=== PATIENT | male | born 1960 | race Caucasian/White ===

== ENCOUNTER 2017-12-22 11:46 | Inpatient (IN) | payer OTHER ==
[~2017-12-22] VITALS: Ht 167.6 cm; Wt 90.6 kg
[~2017-12-22 11:46] MED LIST: ALPR-411 PO; AMLO5TAB3 PO; ASPI-435 PO; ATEN50TA8 PO; BUSP15TA70 PO; CHOL1CAP63 PO; CLR10 PO; FLM4 PO; FLUT0.15; GLC/500 PO; MELATAB2 PO; NXM/40 PO; SUCR1TAB PO; [UNRECOGNIZED DRUG - CODE]
[2017-12-22] MEDS ORDERED: KETOROLAC TROMETHAMINE 30 MG/ML VIAL IV STA (12:04)
[2017-12-22] MEDS ORDERED: SODIUM CHLORIDE 0.9% 1000ML 1,000 ML IV STA (12:04)
[2017-12-22] MEDS ORDERED: ONDANSETRON INJ 2 MG/ML 2 ML VIAL IV STA (12:04)
--- NOTE | 2017-12-22 12:13 | EMERGENCY ROOM VISIT NOTE ---
History Report prepared by Darell: Julio Mason Under the Supervision of: Dr. Amarjit Downs M.D. First contact with patient: 11:58 Chief Complaint: KIDNEY STONE Stated Complaint: KIDNEY STONE,VOMITING History of Present Illness The patient is a 57 year old male who presents to the Emergency Room with complaints of worsening pain in the left flank that began last week. The patient 's at bedside states that the patient had laboratory work performed in the outpatient setting as pre-operative testing. On this laboratory work they found infection and placed him on antibiotics. Follow-up renal ultra sound found an obstructing stone in the left kidney. He is scheduled to have a CT next Sunday. The patient is now also complaining of nausea and vomiting. Source of History: patient Onset: Last week Position: back (left flank) Quality: other (Known kindey stone) Timing: worsening Associated Symptoms: + nausea, + vomiting Review of Systems See HPI for pertinent positives and negatives. A total of ten systems were reviewed and were otherwise negative. Past Medical & Surgical Medical Problems: (1) Abdominal pain (2) Abnormal weight loss (3) Acute low back pain (4) Anxiety (5) Benign hypertension (6) BPH (benign prostatic hyperplasia) (7) Calculus of kidney and ureter (8) Chest pain (9) Diarrhea (10) Gastroesophageal reflux disease (11) Hydronephrosis, left (12) Hyperlipidemia (13) Kidney stones (14) Nausea Surgical Problems: (1) History of lithotripsy (2) History ureteral calculus removal Social History Smoking Status: Never Smoker Marital Status: Occupation Status: employed Current/Historical Medications Scheduled Amlodipine (Norvasc), 5 MG PO HS Aspirin (Aspirin 81), 81 MG PO QAM Atenolol (Tenormin), 50 MG PO BID Buspirone Hcl (Buspar), 15 MG PO BID Choline Fenofibrate (Fenofibric Acid Dr), 135 MG PO QAM Ciprofloxacin (Ciprofloxacin HCl), 1 TAB PO BID Esomeprazole Magnesium (Nexium), 40 MG PO DAILY Fluticasone Propionate (Nasal) (Flonase Allergy Relief), 2 SPRAYS NA DAILY Loratadine (Claritin), 10 MG PO QAM Melatonin (Melatonin Maximum Strengt), 5 MG PO HS Metformin Hcl (Glucophage), 500 MG PO BID Sucralfate (Sucralfate), 1 GM PO QID Tamsulosin HCl (Tamsulosin HCl), 0.4 MG PO QAM Scheduled PRN Alprazolam (Xanax), 0.5 MG PO TID PRN for Anxiety Oxycodone/Acetaminophen 5MG/325MG (Percocet 5MG/325MG), 1 TABLET PO Q4H PRN for Pain Saline (Ra Saline Nasal [place]), 1 SPRAY NA DAILY PRN for Nasal Congestion Allergies Coded Allergies: Amoxicillin (Unverified Adverse Reaction, Mild, Diarrhea, 12/22/17) Diarrhea, per pt Physical Exam Vital Signs Date Time Temp Pulse Resp B/P (MAP) Pulse Ox O2 Delivery O2 Flow Rate FiO2 12/22/17 13:20 96 Room Air 12/22/17 13:15 81 18 101/64 96 Room Air 12/22/17 11:48 37.1 96 18 110/74 96 Room Air Physical Exam Physical Exam GENERAL: He is oriented to person, place, and time. He appears well-developed and well-nourished. He does not appear distressed. HENT: Exam performed. Head: Normocephalic and atraumatic. Right Ear: External ear normal. No mastoid tenderness. Left Ear: External ear normal. No mastoid tenderness. Mouth/Throat: The oropharynx is clear and moist. No trismus in the jaw. No dental abscesses or uvula swelling. No oropharyngeal exudate or tonsillar abscesses. EYES: Conjunctivae and EOM are normal. Pupils are equal, round, and reactive to light. Right eye exhibits no discharge. Left eye exhibits no discharge. No scleral icterus. NECK: Normal range of motion. Neck supple. No JVD present. No spinous process tenderness present. No carotid bruit present. No rigidity. No tracheal deviation and normal range of motion present. No Brudzinski's sign and no Kernig 's sign noted. CV: Normal rate, regular rhythm, normal heart sounds and intact distal pulses. There is no peripheral edema. Palpable radial pulses bue. PULM/CHEST: Effort normal and breath sounds normal. No respiratory distress. No stridor. He has no wheezes. He has no rales. Chest Wall: He exhibits no tenderness. ABD: The abdomen is soft. Bowel sounds are normal. He has no distension. No mass is present. There is no tenderness. There is no rebound, no guarding, no Crespo's sign and no tenderness at McBurney's point. Rovsig negative. MUSC/SKEL: Normal range of motion. There is no peripheral edema, tenderness or deformity. LYMPH: No cervical adenopathy. NEURO: He is alert and oriented to person, place, and time. He has normal strength. No cranial nerve deficit or sensory deficit. Coordination and gait normal. GCS eye subscore is 4. GCS verbal subscore is 5. GCS motor subscore is 6. Cerebellar tests wnl. SKIN: Skin is warm and dry. He is not diaphoretic. PSYCH: He has a normal mood and affect. Behavior is normal. Judgment and thought content normal. Medical Decision & Procedures ER Provider Diagnostic Interpretation: Radiology results as stated below per my review and radiologist interpretation: ] ABD/PELVIS WITHOUT FOR STONE CLINICAL HISTORY: 57 years-old Male presenting with ro kidney stone. TECHNIQUE: Multidetector CT of the abdomen and pelvis was performed without the use of intravenous contrast. IV contrast: None. A dose lowering technique was used consistent with the principles of ALARA (as low as reasonably achievable). COMPARISON: None. CT DOSE (mGy.cm): The estimated cumulative dose is 1272.31 mGy.cm. FINDINGS: Rehab Tech topogram: Unavailable. Lung bases: Minimal basilar opacities, likely atelectasis. Mild bronchial wall thickening suggested. Normal heart size. No pericardial or pleural effusion. Liver: Normal morphology. Density consistent with hepatic steatosis. Biliary: No gross biliary ductal dilatation allowing for noncontrast technique. Normal gallbladder. Pancreas: Mild parenchymal atrophy. Spleen: Normal noncontrast appearance. Adrenal glands: Normal noncontrast appearance. Kidneys and ureters: 6 mm nonobstructing calculus in the interpolar region of the right kidney. Small hyperdensity at the lower pole the right kidney indeterminate but possibly hemorrhagic or proteinaceous cyst (series 3 image 214). Multiple nonobstructing left renal calculi, the dominant calculus at the lower pole measuring 11 mm. Mild left pelvocaliectasis with an obstructing or partially obstructing 9 mm calculus at the left renal pelvis. Bilateral nonspecific mild perinephric fat stranding. Ureters normal bilaterally. Bladder: Incompletely evaluated secondary to underdistention. Pelvic organs: Prostate and seminal vesicles normal. Calcification in the prostate may relate to atrophic change. Bowel: Few scattered colonic diverticula in the descending and sigmoid colon. The appendix is normal. No bowel obstruction. Peritoneal cavity: No free fluid or intraperitoneal gas. Trace left retroperitoneal fluid. Lymph nodes: No gross lymphadenopathy allowing for noncontrast technique. Vasculature: Atherosclerosis of the normal caliber abdominal aorta. Abdominal wall: Normal. Musculoskeletal: Degenerative changes of the spine. IMPRESSION: 1. Bilateral nephrolithiasis with an obstructing or partially obstructing 9 mm calculus in the left renal pelvis and mild left hydronephrosis. 2. Hepatic steatosis. 3. Mild bronchial wall thickening at the lung bases, nonspecific. This may indicate reactive airways disease or bronchiolitis. Electronically signed by: Rickie Beckwith M.D. 12/22/2017 12:38 PM Dictated Date/Time: 12/22/2017 12:33 PM Laboratory Results 12/22/17 12:18 Red Blood Count 4.30, Mean Corpuscular Volume 87.4, Mean Corpuscular Hemoglobin 29.8, Mean Corpuscular Hemoglobin Concent 34.0, Mean Platelet Volume 8.8, Neutrophils (%) (Auto) 75.7, Lymphocytes (%) (Auto) 11.0, Monocytes (%) (Auto) 12.9, Eosinophils (%) (Auto) 0.1, Basophils (%) (Auto) 0.1, Neutrophils # (Auto ) 8.10, Lymphocytes # (Auto) 1.18, Monocytes # (Auto) 1.38, Eosinophils # (Auto ) 0.01, Basophils # (Auto) 0.01 12/22/17 12:18 Test 12/22/17 12:18 12/22/17 12:24 White Blood Count 10.70 K/uL (4.8-10.8) Red Blood Count 4.30 M/uL (4.7-6.1) Hemoglobin 12.8 g/dL (14.0-18.0) Hematocrit 37.6 % (42-52) Mean Corpuscular Volume 87.4 fL (80-100) Mean Corpuscular Hemoglobin 29.8 pg (25-34) Mean Corpuscular Hemoglobin Concent 34.0 g/dl (32-36) Platelet Count 205 K/uL (130-400) Mean Platelet Volume 8.8 fL (7.4-10.4) Neutrophils (%) (Auto) 75.7 % Lymphocytes (%) (Auto) 11.0 % Monocytes (%) (Auto) 12.9 % Eosinophils (%) (Auto) 0.1 % Basophils (%) (Auto) 0.1 % Neutrophils # (Auto) 8.10 K/uL (1.4-6.5) Lymphocytes # (Auto) 1.18 K/uL (1.2-3.4) Monocytes # (Auto) 1.38 K/uL (0.11-0.59) Eosinophils # (Auto) 0.01 K/uL (0-0.5) Basophils # (Auto) 0.01 K/uL (0-0.2) RDW Standard Deviation 45.4 fL (36.4-46.3) RDW Coefficient of Variation 14.2 % (11.5-14.5) Immature Granulocyte % (Auto) 0.2 % Immature Granulocyte # (Auto) 0.02 K/uL (0.00-0.02) Anion Gap 12.0 mmol/L (3-11) Est Creatinine Clear Calc Drug Dose 47.2 ml/min Estimated GFR () 46.7 Estimated GFR (Non- 40.3 BUN/Creatinine Ratio 14.3 (10-20) Lactic Acid Level 1.3 mmol/L (0.4-2.0) Calcium Level 8.9 mg/dl (8.5-10.1) Urine Color ORANGE Urine Appearance CLOUDY (CLEAR) Urine pH 5.0 (4.5-7.5) Urine Specific [place] 1.031 (1.000-1.030) Urine Protein NEG (NEG) Urine Glucose (UA) NEG (NEG) Urine Ketones 1+ (NEG) Urine Occult Blood 2+ (NEG) Urine Nitrite POS (NEG) Urine Bilirubin 2+ (NEG) Urine Urobilinogen POS (NEG) Urine Leukocyte Esterase MODERATE (NEG) Urine WBC (Auto) >30 /hpf (0-5) Urine RBC (Auto) 5-10 /hpf (0-4) Urine Hyaline Casts (Auto) 5-10 /lpf (0-5) Urine Epithelial Cells (Auto) >30 /lpf (0-5) Urine Bacteria (Auto) NEG (NEG) Laboratory results reviewed by me Medications Administered Medications (Trade) Dose Ordered Sig/Zoe Route Start Time Stop Time Status Last Admin Dose Admin Sodium Chloride 1,000 ml @ 999 mls/hr Q1H1M STAT IV 12/22/17 12:04 12/22/17 13:04 DC 12/22/17 12:25 999 MLS/HR Ketorolac Tromethamine (Toradol Inj) 15 mg NOW STAT IV 12/22/17 12:04 12/22/17 12:06 DC 12/22/17 12:26 15 MG Ondansetron HCl (Zofran Inj) 4 mg NOW STAT IV 12/22/17 12:04 12/22/17 12:06 DC 12/22/17 12:25 4 MG ED Course 1202: The patient was evaluated in room C2B. A complete history and physical exam was performed. 1204: Ordered Zofran 4 mg IV, Toradol 15 mg IV, Sodium Chloride 1000 mL @ 999 mL /hr. 1306: Vital signs stable. Patient states feels better status post Toradol injection. Patient's CT shows a large left-sided renal stone with hydronephrosis. Creatinine is elevated, thought to be due to hydronephrosis and kidney stone. I discussed the case with Tiara Schroeder Barry ARROYO. She will evaluate for further treatment. 1325: I discussed the case with Dr. Marcio Iverson. He agrees with treatment plan and admission. Medical Decision 1202: The patient was evaluated in room C2B. A complete history and physical exam was performed. 1204: Ordered Zofran 4 mg IV, Toradol 15 mg IV, Sodium Chloride 1000 mL @ 999 mL /hr. 1306: Vital signs stable. Patient states feels better status post Toradol injection. Patient's CT shows a large left-sided renal stone with hydronephrosis. Creatinine is elevated, thought to be due to hydronephrosis and kidney stone. I discussed the case with Tiara Reddy PA-C. She will evaluate for further treatment. 1325: I discussed the case with Dr. Marcio Iverson. He agrees with treatment plan and admission. Medication Reconcilliation Current Medication List: was personally reviewed by ar Blood Pressure Screening Patient's blood pressure: Normal blood pressure Consults Time Called: 1300 Consulting Physician: Tiara Reddy PA-C Returned Call: 1306 I discussed the case with Tiara Pettit [facility] Hospitalist CRUZ. She will evaluate for further treatment. Additional Consults: Time Called: 1308 Consulted Physician: Dr. Buckley - Urology Returned Call: [phone] Additional Comments: I discussed the case with Dr. Buckley - Urologanastasia. He agrees with treatment plan and admission. Impression Primary Impression: Hydronephrosis with renal calculous obstruction Additional Impression: Acute kidney injury Scribe Attestation The scribe's documentation has been prepared under my direction and personally reviewed by me in its entirety. I confirm that the note above accurately reflects all work, treatment, procedures, and medical decision making performed by me. The chart was completed utilizing [employer] Speech voice recognition software. Grammatical errors, random word insertions, pronoun errors, and incomplete sentences are an occasional consequence of this system due to software limitations, ambient noise, and hardware issues. Any formal questions or concerns about the content, text, or information contained within the body of this dictation should be directly addressed to the physician for clarification. Departure Information Dispostion Home / Self-Care Referrals No Doctor, Assigned (PCP) Patient Instructions My [facility] Problem Qualifiers
[2017-12-22 12:29] LABS: BASO % 0.1 %; BASO ABS # 0.01 K/uL (0-0.2); EOS % 0.1 %; EOS ABS # 0.01 K/uL (0-0.5); HEMATOCRIT 37.6 % (42-52); HEMOGLOBIN 12.8 g/dL (14.0-18.0); IG# 0.02 K/uL (0.00-0.02); LYMPH ABS # 1.18 K/uL (1.2-3.4); MEAN CELL VOLUME 87.4 fL (80-100); MEAN CORPUSCULAR HEMOGLOBIN 29.8 pg (25-34); MEAN PLATELET VOLUME 8.8 fL (7.4-10.4); MONO % 12.9 %; MONO ABS # 1.38 K/uL (0.11-0.59); NEUT % 75.7 %; PLATELET COUNT 205 K/uL (130-400); RED CELL DISTRIBUTION WIDTH CV 14.2 % (11.5-14.5); RED CELL DISTRIBUTION WIDTH SD 45.4 fL (36.4-46.3)
--- NOTE | 2017-12-22 12:39 | DIAGNOSTIC IMAGING REPORT ---
ABD/PELVIS WITHOUT FOR STONE CLINICAL HISTORY: 57 years-old Male presenting with ro kidney stone. TECHNIQUE: Multidetector CT of the abdomen and pelvis was performed without the use of intravenous contrast. IV contrast: None. A dose lowering technique was used consistent with the principles of ALARA (as low as reasonably achievable). COMPARISON: None. CT DOSE (mGy.cm): The estimated cumulative dose is 1272.31 mGy.cm. FINDINGS: Dryland Farmer topogram: Unavailable. Lung bases: Minimal basilar opacities, likely atelectasis. Mild bronchial wall thickening suggested. Normal heart size. No pericardial or pleural effusion. Liver: Normal morphology. Density consistent with hepatic steatosis. Biliary: No gross biliary ductal dilatation allowing for noncontrast technique. Normal gallbladder. Pancreas: Mild parenchymal atrophy. Spleen: Normal noncontrast appearance. Adrenal glands: Normal noncontrast appearance. Kidneys and ureters: 6 mm nonobstructing calculus in the interpolar region of the right kidney. Small hyperdensity at the lower pole the right kidney indeterminate but possibly hemorrhagic or proteinaceous cyst (series 3 image 214). Multiple nonobstructing left renal calculi, the dominant calculus at the lower pole measuring 11 mm. Mild left pelvocaliectasis with an obstructing or partially obstructing 9 mm calculus at the left renal pelvis. Bilateral nonspecific mild perinephric fat stranding. Ureters normal bilaterally. Bladder: Incompletely evaluated secondary to underdistention. Pelvic organs: Prostate and seminal vesicles normal. Calcification in the prostate may relate to atrophic change. Bowel: Few scattered colonic diverticula in the descending and sigmoid colon. The appendix is normal. No bowel obstruction. Peritoneal cavity: No free fluid or intraperitoneal gas. Trace left retroperitoneal fluid. Lymph nodes: No gross lymphadenopathy allowing for noncontrast technique. Vasculature: Atherosclerosis of the normal caliber abdominal aorta. Abdominal wall: Normal. Musculoskeletal: Degenerative changes of the spine. IMPRESSION: 1. Bilateral nephrolithiasis with an obstructing or partially obstructing 9 mm calculus in the left renal pelvis and mild left hydronephrosis. 2. Hepatic steatosis. 3. Mild bronchial wall thickening at the lung bases, nonspecific. This may indicate reactive airways disease or bronchiolitis. Electronically signed by: Rickie Beckwith M.D. 12/22/2017 12:38 PM Dictated Date/Time: 12/22/2017 12:33 PM
[2017-12-22 12:46] LABS: CALCIUM 8.9 mg/dl (8.5-10.1); CREATININE 1.82 mg/dl (0.60-1.40); POTASSIUM 3.3 mmol/L (3.5-5.1)
[2017-12-22] MEDS ORDERED: CPR500 PO (13:03)
[2017-12-22] MEDS ORDERED: OXYC-57 PO (13:03)
[2017-12-22 13:20] VITALS: O2SAT 96; Ht 167.6 cm; Wt 90.6 kg
[2017-12-22] MEDS ORDERED: POTASSIUM CHLORIDE 10 MEQ TABCR PO SCH (13:51)
[2017-12-22] MEDS ORDERED: ONDANSETRON INJ 2 MG/ML 2 ML VIAL IV PRN (14:00)
[2017-12-22] MEDS ORDERED: NXM/40 PO (14:12)
[2017-12-22] MEDS ORDERED: GLUCOSE 10 TABS/TUBE PO PRN (14:15)
[2017-12-22] MEDS ORDERED: DEXTROSE 50% 50 ML SYR IV PRN (14:15)
[2017-12-22] MEDS ORDERED: CARBOHYDRATES FOR HYPOGLYCEMIA PO PRN (14:15)
[2017-12-22] MEDS ORDERED: SODIUM CHLORIDE 0.65% NA SOLN 45 ML (OCEAN) PRN (14:15)
[2017-12-22] MEDS ORDERED: GLUCOSE 40% GEL 15 GM TUBE PO PRN (14:15)
[2017-12-22] MEDS ORDERED: GLUCAGON FOR INJ 1 MG VIAL SQ PRN (14:15)
--- NOTE | 2017-12-22 14:49 | History and Physical ---
History & Physical Date & Time of Service: Dec 22, 2017 at 14:16 Chief Complaint: Kidney Stone,Vomiting Primary Care Physician: Nicole Hill M.D. History of Present Illness Source: patient, spouse, clinic records, hospital records Pt is 57 y/o M with PMH HTN, GERD, anxiety, BPH, kidney stones presented to ER with complaint of left flank pain. Patient reports has been having left flank pain and intermittent dysuria and urinary frequency for the past 2-3 weeks. Having chills this week, has not been taking his temperature. Past 3 days has been vomiting 2-3 times a day. Saw PCP on 12/18/17, had renal ultrasound: Mild left hydronephrosis, bilateral renal calculi. Patient was started on Cipro 500 twice daily 10 days. Urine culture: Staph species, not staph aureus. Patient reports still with intermittent dysuria and urinary frequency. Today his urine looked dark and is unsure if there is blood. Patient states took 1 oxycodone causes increased nausea however did not help much with pain. BM this a.m. Denies fever/chills, diaphoresis, ZAMORA, dizziness, syncope, vision changes, neck pain, CP, SOB, orthopnea, palpitations, cough, abdominal pain, paresthesias, weakness, extremity edema, rashes. History lithotripsy and removal renal stones in past. Past Medical/Surgical History Medical Problems: (1) Abdominal pain Status: Resolved (2) Abnormal weight loss Status: Resolved (3) Acute low back pain Status: Resolved (4) Anxiety Status: Chronic (5) Benign hypertension Status: Chronic (6) BPH (benign prostatic hyperplasia) Status: Chronic (7) Calculus of kidney and ureter Status: Chronic (8) Chest pain Status: Resolved (9) Diarrhea Status: Resolved (10) Gastroesophageal reflux disease Status: Chronic (11) Hyperlipidemia Status: Chronic (12) Kidney stones Status: Chronic (13) Nausea Status: Resolved Surgical Problems: (1) History of lithotripsy Status: Resolved (2) History ureteral calculus removal Status: Resolved Family History FH black lung FH thyroid disorder FH: cancer Social History Smoking Status: Former Smoker Smokeless Tobacco Use: Yes (One can snuff daily) Alcohol Use: 4 beers a day on the weekends Drug Use: none Marital Status: Housing status: lives with family Occupational Status: employed Immunizations History of Influenza Vaccine: Yes Influenza Vaccine Date: Apr 06, 2011 History of Tetanus Vaccine?: PT STATES WITH IN THE LAST THREE YEARS History of Pneumococcal: Yes Pneumococcal Date: Mar 07, 2011 History of Hepatitis B Vaccine: No Allergies Coded Allergies: Amoxicillin (Unverified Adverse Reaction, Mild, Diarrhea, 12/22/17) Diarrhea, per pt Home Medications Scheduled Amlodipine (Norvasc), 5 MG PO HS Aspirin (Aspirin 81), 81 MG PO QAM Atenolol (Tenormin), 50 MG PO BID Buspirone Hcl (Buspar), 15 MG PO BID Choline Fenofibrate (Fenofibric Acid Dr), 135 MG PO QAM Ciprofloxacin (Ciprofloxacin HCl), 1 TAB PO BID Esomeprazole Magnesium (Nexium), 40 MG PO DAILY Fluticasone Propionate (Nasal) (Flonase Allergy Relief), 2 SPRAYS NA DAILY Loratadine (Claritin), 10 MG PO QAM Melatonin (Melatonin Maximum Strengt), 5 MG PO HS Metformin Hcl (Glucophage), 500 MG PO BID Sucralfate (Sucralfate), 1 GM PO QID Tamsulosin HCl (Tamsulosin HCl), 0.4 MG PO QAM Scheduled PRN Alprazolam (Xanax), 0.5 MG PO TID PRN for Anxiety Oxycodone/Acetaminophen 5MG/325MG (Percocet 5MG/325MG), 1 TABLET PO Q4H PRN for Pain Saline (Ra Saline Nasal [place]), 1 SPRAY NA DAILY PRN for Nasal Congestion Review of Systems See HPI for pertinent positives & negatives. All other systems reviewed and were otherwise negative Physical Exam Vital Signs Date Time Temp Pulse Resp B/P (MAP) Pulse Ox O2 Delivery O2 Flow Rate FiO2 12/22/17 13:20 96 Room Air 12/22/17 13:15 81 18 101/64 96 Room Air 12/22/17 11:48 37.1 96 18 110/74 96 Room Air General Appearance: no apparent distress, + obese Head: normocephalic, atraumatic Eyes: normal inspection, sclerae normal ENT: hearing grossly normal, pharynx normal, + pertinent finding (mucuous membranes mildly dry) Neck: supple, trachea midline Respiratory/Chest: lungs clear, normal breath sounds, no respiratory distress Cardiovascular: regular rate, rhythm, no murmur Abdomen/GI: normal bowel sounds, non tender, soft Back: + left CVA tenderness Extremities/Musculoskelatal: no calf tenderness, normal capillary refill, no pedal edema Neurologic/Psych: alert, normal mood/affect, oriented x 3 Skin: warm/dry Diagnostics Laboratory Results Results Past 24 Hours Test 12/22/17 12:18 12/22/17 12:24 Range/Units White Blood Count 10.70 4.8-10.8 K/uL Red Blood Count 4.30 4.7-6.1 M/uL Hemoglobin 12.8 14.0-18.0 g/dL Hematocrit 37.6 42-52 % Mean Corpuscular Volume 87.4 80-100 fL Mean Corpuscular Hemoglobin 29.8 25-34 pg Mean Corpuscular Hemoglobin Concent 34.0 32-36 g/dl Platelet Count 205 130-400 K/uL Mean Platelet Volume 8.8 7.4-10.4 fL Neutrophils (%) (Auto) 75.7 % Lymphocytes (%) (Auto) 11.0 % Monocytes (%) (Auto) 12.9 % Eosinophils (%) (Auto) 0.1 % Basophils (%) (Auto) 0.1 % Neutrophils # (Auto) 8.10 1.4-6.5 K/uL Lymphocytes # (Auto) 1.18 1.2-3.4 K/uL Monocytes # (Auto) 1.38 0.11-0.59 K/uL Eosinophils # (Auto) 0.01 0-0.5 K/uL Basophils # (Auto) 0.01 0-0.2 K/uL RDW Standard Deviation 45.4 36.4-46.3 fL RDW Coefficient of Variation 14.2 11.5-14.5 % Immature Granulocyte % (Auto) 0.2 % Immature Granulocyte # (Auto) 0.02 0.00-0.02 K/uL Sodium Level 138 136-145 mmol/L Potassium Level 3.3 3.5-5.1 mmol/L Chloride Level 103 98-107 mmol/L Carbon Dioxide Level 23 21-32 mmol/L Anion Gap 12.0 3-11 mmol/L Blood Urea Nitrogen 26 7-18 mg/dl Creatinine 1.82 0.60-1.40 mg/dl Est Creatinine Clear Calc Drug Dose 47.2 ml/min Estimated GFR () 46.7 Estimated GFR (Non- 40.3 BUN/Creatinine Ratio 14.3 10-20 Random Glucose 157 70-99 mg/dl Lactic Acid Level 1.3 0.4-2.0 mmol/L Calcium Level 8.9 8.5-10.1 mg/dl Urine Color ORANGE Urine Appearance CLOUDY CLEAR Urine pH 5.0 4.5-7.5 Urine Specific [place] 1.031 1.000-1.030 Urine Protein NEG NEG Urine Glucose (UA) NEG NEG Urine Ketones 1+ NEG Urine Occult Blood 2+ NEG Urine Nitrite POS NEG Urine Bilirubin 2+ NEG Urine Urobilinogen POS NEG Urine Leukocyte Esterase MODERATE NEG Urine WBC (Auto) >30 0-5 /hpf Urine RBC (Auto) 5-10 0-4 /hpf Urine Hyaline Casts (Auto) 5-10 0-5 /lpf Urine Epithelial Cells (Auto) >30 0-5 /lpf Urine Bacteria (Auto) NEG NEG Microbiology Results 12/22/17 Urine Culture, Received Pending Diagnostic Radiology CT ABDOMEN PELVIS: IMPRESSION: 1. Bilateral nephrolithiasis with an obstructing or partially obstructing 9 mm calculus in the left renal pelvis and mild left hydronephrosis. 2. Hepatic steatosis. 3. Mild bronchial wall thickening at the lung bases, nonspecific. This may indicate reactive airways disease or bronchiolitis. Impression Assessment and Plan Pt is 57 y/o M with PMH HTN, GERD, anxiety, BPH, kidney stones presented to ER with complaint of left flank pain. Patient reports has been having left flank pain and intermittent dysuria and urinary frequency for the past 2-3 weeks. LEFT OBSTRUCTING CALCULUS LEFT RENAL PELVIS with LEFT HYDRONEPHROSIS UTI Out pt urine culture on 12/19/17: staph species not s aureus. No sensitivities. pt been on cipro 500mg BID for 3 days. Today in ER: CT abd/pelvis: Bilateral nephrolithiasis with an obstructing or partially obstructing 9 mm calculus in the left renal pelvis and mild left hydronephrosis. UA: 2+blood, +nitrite, moderate leuk, >30 WBC, 5-10 RBC, >30 epithelial. WBC: 10. afebrile. vitals stable. -pending urine culture -IVF -continue flomax -morphine prn pain -Rocephin -urology consult -npo after midnight for probable procedure tomorrow am ACUTE KIDNEY INJURY Cr: 1.82, GFR: 40 (baseline Cr ~1.2 and GFR >60) -IVF -monitor renal functions -avoid nephrotoxic agents when possible HYPOKALEMIA K: 3.3 -replace and monitor HTN Stable -continue amlodipine, atenolol DM II A1c 5.7 on 12/07/17 -Hold metformin -monitor BSG -Basal bolus insulin per protocol -DM diet ANXIETY Stable -continue buspirone -continue xanax prn GERD -continue PPI, sucralfate BPH -continue flomax TOBACCO ABUSE -tobacco cessation discussed, pt not ready to quit -denies nicotine patch DVT Prophylaxis -SCDs Admit med surg Full Code Follows with Dr Hill for routine care Pt was seen with Dr Hung. See addendum Attending Addendum Pt was seen and examined. Agreed with Sherice ARROYO exam, assessment and plan. 57 y/o M with PMH HTN, GERD, anxiety, BPH, kidney stones presented to ER with complaint of left flank pain. Pt said that he has been having intermittent left side flank pain associated with dysuria for the last 3 days. Pt said that pain seems to be worst with urinary and relief after voiding. He saw his PCP on 12/18, had renal ultrasound that showed mild left hydronephrosis, bilateral renal calculi. outpatient urine culture was positive for Staph species, not staph aureus. He was started on Cipro 500 twice daily 10 days. He had some dark urine today. In the ER he had a CT abd/pelvis done that showed Bilateral nephrolithiasis with an obstructing or partially obstructing 9 mm calculus in the left renal pelvis and mild left hydronephrosis. UA positive for nitrite and leukocytes. Starting on Rocephin IV and IVF. Urine cx sent. Urology consulted and plan for cystoscopy with stent placement. Will make NPO after midnight. 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
[2017-12-22] MEDS ORDERED: POLYETHYLENE (MIRALAX) 17 GM PACK PO PRN (15:00)
[2017-12-22] MEDS: CEFTRIAXONE SOD INJ 1 GM in DEXTROSE 5% ADD-VANTAGE 50ML 50 ML IV SCH (16:03)
[2017-12-22] MEDS: NSS + 20MEQ KCL 1000ML 1,000 ML IV SCH (16:03)
--- NOTE | 2017-12-22 16:03 | Urology Consultation ---
History General Date of Service: Dec 22, 2017. Primary Care Physician: Nicole Hill M.D. Pt seen a urologist before?: No History of Present Illness 57 y/o M with PMH HTN, GERD, anxiety, BPH, kidney stones presented to ER with complaint of left flank pain. Patient reports has been having left flank pain and intermittent dysuria and urinary frequency for the past 2-3 weeks. Having chills this week, has not been taking his temperature. Past 3 days has been vomiting 2-3 times a day. Saw PCP on 12/18/17, had renal ultrasound: Mild left hydronephrosis, bilateral renal calculi. Started on Cipro 500 twice daily 10 days. Urine culture: Staph species, not staph aureus. Patient reports still with intermittent dysuria and urinary frequency. Today his urine looked dark and is unsure if there is blood. History lithotripsy and removal renal stones in past. Cr elevated to 1.8 CT Scan in ED as below: IMPRESSION: 1. Bilateral nephrolithiasis with an obstructing or partially obstructing 9 mm calculus in the left renal pelvis and mild left hydronephrosis. 2. Hepatic steatosis. 3. Mild bronchial wall thickening at the lung bases, nonspecific. This may indicate reactive airways disease or bronchiolitis. Imaging Imaging: CT Laboratory Labs were reviewed and are within normal limits unless listed below. Labs are available in the chart and at [facility] Problem List Medical Problems: (1) Acute kidney injury Status: Acute (2) Hydronephrosis with renal calculous obstruction Status: Acute Past History BPH, GERD, hypertension, other Past Surgical History: no surgical history, other Family History FH black lung FH thyroid disorder FH: cancer Social History Hx Tobacco Use In Past Year?: No (SMOKED QUIT A YEAR AGO) Smoking: quit greater than 1 year Alcohol: never Marital status: Housing status: lives with family Occupation status: employed Immunizations History of Influenza Vaccine: Yes Influenza Vaccine Date: Apr 06, 2011 History of Tetanus Vaccine?: PT STATES WITH IN THE LAST THREE YEARS History of Pneumococcal: Yes Pneumococcal Date: Mar 07, 2011 History of Hepatitis B Vaccine: No History of MDRO No Allergies Coded Allergies: Amoxicillin (Unverified Adverse Reaction, Mild, Diarrhea, 12/22/17) Diarrhea, per pt Medications Home Medications: Home Meds and Scripts Medications Dose Route/Sig Max Daily Dose Days Date Category Dose Instructions Nexium (Esomeprazole Magnesium) 40 Mg Cap 40 Mg PO DAILY 12/22/17 Reported Percocet 5MG/325MG (Oxycodone/Acetaminophen) Tab 1 Tablet PO Q4H PRN 12/22/17 Reported PAIN Ciprofloxacin HCl (Ciprofloxacin) 500 Mg Tab 1 Tab PO BID 12/22/17 Reported Melatonin Maximum Strengt (Melatonin) 5 Mg Tab 5 Mg PO HS 12/03/[address] (Choline Fenofibrate) 135 Mg Cap 135 Mg PO QAM 12/03/17 Reported Claritin (Loratadine) 10 Mg Tab 10 Mg PO QAM 12/03/17 Reported Norvasc (Amlodipine Besylate) 5 Mg Tab 5 Mg PO HS 12/03/17 Reported Tamsulosin HCl 0.4 Mg Cap 0.4 Mg PO QAM 12/03/17 Reported Xanax (Alprazolam) 0.5 Mg Tab 0.5 Mg PO TID PRN 12/03/17 Reported Glucophage (Metformin Hcl) 500 Mg Tab 500 Mg PO BID 12/03/17 Reported Buspar (Buspirone Hcl) 15 Mg Tab 15 Mg PO BID 12/03/17 Reported Ra Saline Nasal [place] (Saline) 0.65 % Spr 1 [place] NA DAILY PRN 12/03/17 Reported Flonase Allergy Relief (Fluticasone Propionate (Nasal)) 50 Mcg/Act Spr 2 Sprays NA DAILY 12/03/17 Reported Aspirin 81 (Aspirin) 81 Mg Tab 81 Mg PO QAM 12/03/17 Reported Sucralfate 1 Gm Tab 1 Gm PO QID 12/03/17 Reported 1 tab po 30 minutes prior to meals, and at bedtime Tenormin (Atenolol) 50 Mg Tab 50 Mg PO BID 02/24/07 Reported Inpatient Medications: Current Inpatient Medications Medications (Trade) Dose Ordered Sig/Zoe Route Start Time Stop Time Status Last Admin Dose Admin Acetaminophen (Tylenol Tab) 650 mg Q4H PRN PO 12/22/17 14:00 01/21/18 13:59 Polyethylene (Miralax Powder Packet) 17 gm DAILY PRN PO 12/22/17 15:00 01/21/18 14:59 Ondansetron HCl (Zofran Inj) 4 mg Q6H PRN IV 12/22/17 14:00 01/21/18 13:59 Potassium Chloride (Klor-Con M10) 40 meq TODAY@1351 PO 12/22/17 13:51 12/22/17 23:59 Potassium Chloride/Sodium Chloride 1,000 ml @ 100 mls/hr Q10H IV 12/22/17 16:00 12/23/17 11:59 Morphine Sulfate (MoRPHine SULFATE INJ) 2 mg Q3HWA PRN IV 12/22/17 14:00 01/05/18 13:59 Alprazolam (Xanax Tab) 0.5 mg TID PRN PO 12/22/17 14:15 01/21/18 14:14 Amlodipine Besylate (Norvasc Tab) 5 mg HS PO 12/22/17 21:00 01/21/18 20:59 Aspirin (Ecotrin Tab) 81 mg QAM PO 12/23/17 09:00 01/22/18 08:59 Atenolol (Tenormin Tab) 50 mg BID PO 12/22/17 21:00 01/21/18 20:59 Buspirone HCl (BusPAR TAB) 15 mg BID PO 12/22/17 21:00 01/21/18 20:59 Fluticasone Propionate (Flonase Nasal [place]) 2 sprays DAILY NA 12/23/17 09:00 01/22/18 08:59 Loratadine (Claritin Tab) 10 mg QAM PO 12/23/17 09:00 01/22/18 08:59 Sodium Chloride (Mono Nasal [place]) 2 sprays DAILY PRN NA 12/22/17 14:15 01/21/18 14:14 Sucralfate (Carafate Tab) 1 gm QID PO 12/22/17 17:00 01/21/18 16:59 Tamsulosin HCl (Flomax Cap) 0.4 mg QAM PO 12/23/17 09:00 01/22/18 08:59 Pantoprazole Sodium (Protonix Tab) 40 mg QAM PO 12/23/17 09:00 01/22/18 08:59 Insulin Glargine (Lantus Solostar Pen) 5 units Q12 SC 12/22/17 21:00 01/21/18 20:59 Insulin Aspart (novoLOG ASPART) SLIDING SCALE If C... ACHS SC 12/22/17 16:00 01/21/18 15:59 Glucose (Glucose 40% Gel) 15-30 GRAMS 15 GRAMS... UD PRN PO 12/22/17 14:15 01/21/18 14:14 Glucose (Glucose Chew Tab) 4-8 Tablets 4 Tabl... UD PRN PO 12/22/17 14:15 01/21/18 14:14 Dextrose (Dextrose 50% 50ML Syringe) 25-50ML 25ML FOR ... UD PRN IV 12/22/17 14:15 01/21/18 14:14 Glucagon (Glucagon Inj) 1 mg UD PRN SQ 12/22/17 14:15 01/21/18 14:14 Carbohydrates (Carbohydrates For Hypoglycemia) 15-30 GRAMS 15 grams if BSG 54-69... UD PRN PO 12/22/17 14:15 01/21/18 14:14 Ceftriaxone Sodium 1 gm/ Dextrose 50 ml @ 100 mls/hr Q24H IV 12/22/17 16:00 01/01/18 14:44 Review of Systems Review of Systems All Other Systems: Reviewed and Negative Physical Exam Vital Signs: Vital Signs Past 12 Hours Date Time Temp Pulse Resp B/P (MAP) Pulse Ox O2 Delivery O2 Flow Rate FiO2 12/22/17 15:15 75 16 90/60 95 Room Air 12/22/17 13:20 96 Room Air 12/22/17 13:15 81 18 101/64 96 Room Air 12/22/17 11:48 37.1 96 18 110/74 96 Room Air Physical Exam: General Appearance: WD/WN ENT: normal ENT inspection Neck: supple Respiratory/Chest: chest non-tender, lungs clear Cardiovascular: regular rate, rhythm Extremities: normal range of motion Neurologic/Psychiatric: no motor/sensory deficits, alert, normal mood/affect Skin: normal color Lymphatic: no adenopathy Assessment & Plan Assessment & Plan (1) Kidney stones Status: Chronic (2) Hydronephrosis, left Pt has a ureteral stone. 9mm obstructing in the left prox ureter. Hydronephrosis. Cr elevated. Given size and location of the stone, unlikely to pass on its own. Continue IV fluids. Pain control. Strain urine. Flomax. Plan for Cysto with Uscope and left stent tomorrow. (Sunday) NPO at midnight
[2017-12-22] MEDS: SUCRALFATE 1 GM TAB PO SCH ×2 (16:06→20:23)
[2017-12-22] MEDS: INSULIN ASPART 100 UNITS/ML 3 ML PEN SC SCH ×2 (17:50→22:26)
[2017-12-22 17:51] VITALS: BP 123/79; PULSE 83
[2017-12-22 20:19] VITALS: BP 165/96; PULSE 97
[2017-12-22] MEDS: MoRPHine SULFATE 2 MG/ML CARP IV PRN ×2 (20:21→23:56)
[2017-12-22] MEDS: BusPIRone 15 MG TAB PO SCH (20:23)
[2017-12-22] MEDS: AMLODIPINE BESYLATE 5 MG TAB PO SCH (20:23)
[2017-12-22] MEDS: INSULIN GLARGINE SOLOSTAR 100 UNITS/ML 3 ML PEN SC SCH (20:28)
[2017-12-22] MEDS ORDERED: NON-FORMULARY MEDICATION (Melatonin (Melatonin Maximum Strengt) 5 MG) PO SCH (21:00)
[2017-12-22 22:45] VITALS: TEMP 38.6
[2017-12-22] MEDS ORDERED: ACETAMINOPHEN 325 MG TAB PO ONE (23:07)
[2017-12-22] MEDS: ALPRAZOLAM 0.5 MG TAB PO PRN (23:08)
[2017-12-22 23:10] VITALS: BP 131/70; PULSE 111; TEMP 38.4; O2SAT 95
[2017-12-22] MEDS: ACETAMINOPHEN 325 MG TAB PO PRN (23:11)
[2017-12-22] MEDS ORDERED: LORAZEPAM 0.5 MG TAB PO ONE (23:23)
[2017-12-23] VITALS (12 sets, daily range): BP systolic 94–126; BP diastolic 56–80; PULSE 78–102; TEMP 36.8–37.7; O2SAT 93–98
[2017-12-23] MEDS: NSS + 20MEQ KCL 1000ML 1,000 ML IV SCH (03:03)
[2017-12-23 05:56] LABS: HEMATOCRIT 38.9 % (42-52); HEMOGLOBIN 13.1 g/dL (14.0-18.0); MEAN CELL VOLUME 88.6 fL (80-100); MEAN CORPUSCULAR HEMOGLOBIN 29.8 pg (25-34); MEAN CORPUSCULAR HGB CONC 33.7 g/dl (32-36); MEAN PLATELET VOLUME 9.3 fL (7.4-10.4); PLATELET COUNT 232 K/uL (130-400); RED CELL DISTRIBUTION WIDTH CV 14.4 % (11.5-14.5); WHITE BLOOD COUNT 11.41 K/uL (4.8-10.8)
[2017-12-23 06:22] LABS: CALCIUM 8.6 mg/dl (8.5-10.1); CREATININE 1.68 mg/dl (0.60-1.40); POTASSIUM 4.1 mmol/L (3.5-5.1)
[2017-12-23] MEDS ORDERED: NURSING VERBAL MED ORDER ONE ×2 (07:15→15:00)
[2017-12-23] MEDS: FLUTICASONE PROPIONATE NA SPR 16 GM BTL SCH (08:29)
[2017-12-23] MEDS: PANTOprazole SOD 40 MG TAB PO SCH (08:32)
[2017-12-23] MEDS: LORATADINE 10 MG TAB PO SCH (08:32)
[2017-12-23] MEDS: SUCRALFATE 1 GM TAB PO SCH ×4 (08:32→21:17)
[2017-12-23] MEDS: TAMSULOSIN HCL 0.4 MG CAP PO SCH (08:32)
[2017-12-23] MEDS: BusPIRone 15 MG TAB PO SCH ×2 (08:33→21:17)
[2017-12-23] MEDS: INSULIN GLARGINE SOLOSTAR 100 UNITS/ML 3 ML PEN SC SCH ×2 (08:34→21:25)
[2017-12-23] MEDS ORDERED: ASPIRIN 81 MG ECTAB PO SCH (09:00)
[2017-12-23] MEDS ORDERED: ATROPINE SULFATE 0.1 MG/ML 5ML SYR IV PRN (10:45)
[2017-12-23] MEDS ORDERED: ONDANSETRON INJ 2 MG/ML 2 ML VIAL IV PRN (10:45)
[2017-12-23] MEDS ORDERED: EpHEDrine SULFATE INJ 50 MG/ML AMP IV PRN (10:45)
[2017-12-23] MEDS ORDERED: FENTANYL CITRATE INJ 50 MCG/1 ML 2 ML VIAL IV PRN (10:45)
[2017-12-23] MEDS ORDERED: PROPOFOL IV EMULSION 10 MG/ML 20 ML VIAL ONE (11:05)
[2017-12-23] MEDS ORDERED: MIDAZOLAM HCL 1 MG/ML 2ML VIAL ONE (11:05)
[2017-12-23] MEDS ORDERED: LIDOCAINE HCL 2% 2 ML VIAL (20MG/ML) ONE (11:05)
[2017-12-23] MEDS ORDERED: FENTANYL CITRATE INJ 50 MCG/1 ML 2 ML VIAL ONE (11:05)
--- NOTE | 2017-12-23 11:10 | Progress Note ---
Subjective Date of Service: Dec 23, 2017. Subjective Pt evaluation today including: conversation w/ patient Pt has left ureteral calculus. Prox. Elevated Cr. Hasn't passed the stone yet. For stent today. Problem List Medical Problems: (1) Acute kidney injury Status: Acute (2) Hydronephrosis with renal calculous obstruction Status: Acute Review of Systems All Other Systems: Reviewed and Negative Objective Vital Signs Date Time Temp Pulse Resp B/P (MAP) Pulse Ox O2 Delivery O2 Flow Rate FiO2 12/23/17 09:36 37.3 20 12/23/17 07:26 Room Air 12/23/17 07:02 37.4 102 24 111/68 (82) 93 Room Air 12/23/17 00:35 37.7 12/22/17 23:10 38.4 111 16 131/70 (90) 95 Room Air 12/22/17 22:45 38.6 12/22/17 22:45 Room Air 12/22/17 20:19 97 165/96 (119) 12/22/17 17:51 83 123/79 (94) 12/22/17 15:45 Room Air 12/22/17 15:15 75 16 90/60 95 Room Air 12/22/17 13:20 96 Room Air 12/22/17 13:15 81 18 101/64 96 Room Air 12/22/17 11:48 37.1 96 18 110/74 96 Room Air Physical Exam General Appearance: WD/WN Cardiovascular: regular rate, rhythm Abdomen: normal bowel sounds Laboratory Results Last 24 Hours Test 12/22/17 12:18 12/22/17 12:24 12/22/17 17:20 12/22/17 20:36 White Blood Count 10.70 K/uL Red Blood Count 4.30 M/uL Hemoglobin 12.8 g/dL Hematocrit 37.6 % Mean Corpuscular Volume 87.4 fL Mean Corpuscular Hemoglobin 29.8 pg Mean Corpuscular Hemoglobin Concent 34.0 g/dl Platelet Count 205 K/uL Mean Platelet Volume 8.8 fL Neutrophils (%) (Auto) 75.7 % Lymphocytes (%) (Auto) 11.0 % Monocytes (%) (Auto) 12.9 % Eosinophils (%) (Auto) 0.1 % Basophils (%) (Auto) 0.1 % Neutrophils # (Auto) 8.10 K/uL Lymphocytes # (Auto) 1.18 K/uL Monocytes # (Auto) 1.38 K/uL Eosinophils # (Auto) 0.01 K/uL Basophils # (Auto) 0.01 K/uL RDW Standard Deviation 45.4 fL RDW Coefficient of Variation 14.2 % Immature Granulocyte % (Auto) 0.2 % Immature Granulocyte # (Auto) 0.02 K/uL Sodium Level 138 mmol/L Potassium Level 3.3 mmol/L Chloride Level 103 mmol/L Carbon Dioxide Level 23 mmol/L Anion Gap 12.0 mmol/L Blood Urea Nitrogen 26 mg/dl Creatinine 1.82 mg/dl Est Creatinine Clear Calc Drug Dose 47.2 ml/min Estimated GFR () 46.7 Estimated GFR (Non- 40.3 BUN/Creatinine Ratio 14.3 Random Glucose 157 mg/dl Lactic Acid Level 1.3 mmol/L Calcium Level 8.9 mg/dl Urine Color ORANGE Urine Appearance CLOUDY Urine pH 5.0 Urine Specific [place] 1.031 Urine Protein NEG Urine Glucose (UA) NEG Urine Ketones 1+ Urine Occult Blood 2+ Urine Nitrite POS Urine Bilirubin 2+ Urine Urobilinogen POS Urine Leukocyte Esterase MODERATE Urine WBC (Auto) >30 /hpf Urine RBC (Auto) 5-10 /hpf Urine Hyaline Casts (Auto) 5-10 /lpf Urine Epithelial Cells (Auto) >30 /lpf Urine Bacteria (Auto) NEG Bedside Glucose 123 mg/dl 97 mg/dl Test 12/23/17 05:37 12/23/17 06:49 White Blood Count 11.41 K/uL Red Blood Count 4.39 M/uL Hemoglobin 13.1 g/dL Hematocrit 38.9 % Mean Corpuscular Volume 88.6 fL Mean Corpuscular Hemoglobin 29.8 pg Mean Corpuscular Hemoglobin Concent 33.7 g/dl RDW Standard Deviation 47.0 fL RDW Coefficient of Variation 14.4 % Platelet Count 232 K/uL Mean Platelet Volume 9.3 fL Sodium Level 139 mmol/L Potassium Level 4.1 mmol/L Chloride Level 106 mmol/L Carbon Dioxide Level 26 mmol/L Anion Gap 7.0 mmol/L Blood Urea Nitrogen 25 mg/dl Creatinine 1.68 mg/dl Est Creatinine Clear Calc Drug Dose 51.1 ml/min Estimated GFR () 51.5 Estimated GFR (Non- 44.4 BUN/Creatinine Ratio 14.7 Random Glucose 115 mg/dl Calcium Level 8.6 mg/dl Bedside Glucose 121 mg/dl Assessment and Plan (1) Kidney stones (2) Hydronephrosis, left Stone in ureter. Elevated Cr. Plan for stent today. Will likely need outpt ESWL or Uscope.
--- NOTE | 2017-12-23 11:21 | Progress Note ---
Medicine Progress Note Date & Time of Visit: Dec 23, 2017 at 10:45. Subjective Pt was seen and examined Lying in bed with no distress with at bedside Pt said that he does not have any pain now He said that his pain usually comes and goes He has been NPO after midnight for possible cystoscopy Denies any chest pain, palpitation, dizziness and SOB Objective Last 8 Hrs Date Time Temp Pulse Resp B/P (MAP) Pulse Ox O2 Delivery O2 Flow Rate FiO2 12/23/17 09:36 37.3 20 12/23/17 07:26 Room Air 12/23/17 07:02 37.4 102 24 111/68 (82) 93 Room Air Physical Exam: General- No acute distress Head- atraumatic Eyes- PERRL, EOMI ENT- oropharynx clear Neck- supple, no JVD Lungs- No wheezing Heart- regular rhythm Abdomen- normal bowel sounds, soft Extremities- no calf tenderness Neuro- alert, oriented x 3; PERRL, EOMI; no facial palsy Skin- warm & dry Laboratory Results: Last 24 Hours Test 12/22/17 12:18 12/22/17 12:24 12/22/17 17:20 12/22/17 20:36 White Blood Count 10.70 K/uL Red Blood Count 4.30 M/uL Hemoglobin 12.8 g/dL Hematocrit 37.6 % Mean Corpuscular Volume 87.4 fL Mean Corpuscular Hemoglobin 29.8 pg Mean Corpuscular Hemoglobin Concent 34.0 g/dl Platelet Count 205 K/uL Mean Platelet Volume 8.8 fL Neutrophils (%) (Auto) 75.7 % Lymphocytes (%) (Auto) 11.0 % Monocytes (%) (Auto) 12.9 % Eosinophils (%) (Auto) 0.1 % Basophils (%) (Auto) 0.1 % Neutrophils # (Auto) 8.10 K/uL Lymphocytes # (Auto) 1.18 K/uL Monocytes # (Auto) 1.38 K/uL Eosinophils # (Auto) 0.01 K/uL Basophils # (Auto) 0.01 K/uL RDW Standard Deviation 45.4 fL RDW Coefficient of Variation 14.2 % Immature Granulocyte % (Auto) 0.2 % Immature Granulocyte # (Auto) 0.02 K/uL Sodium Level 138 mmol/L Potassium Level 3.3 mmol/L Chloride Level 103 mmol/L Carbon Dioxide Level 23 mmol/L Anion Gap 12.0 mmol/L Blood Urea Nitrogen 26 mg/dl Creatinine 1.82 mg/dl Est Creatinine Clear Calc Drug Dose 47.2 ml/min Estimated GFR () 46.7 Estimated GFR (Non- 40.3 BUN/Creatinine Ratio 14.3 Random Glucose 157 mg/dl Lactic Acid Level 1.3 mmol/L Calcium Level 8.9 mg/dl Urine Color ORANGE Urine Appearance CLOUDY Urine pH 5.0 Urine Specific Ethel 1.031 Urine Protein NEG Urine Glucose (UA) NEG Urine Ketones 1+ Urine Occult Blood 2+ Urine Nitrite POS Urine Bilirubin 2+ Urine Urobilinogen POS Urine Leukocyte Esterase MODERATE Urine WBC (Auto) >30 /hpf Urine RBC (Auto) 5-10 /hpf Urine Hyaline Casts (Auto) 5-10 /lpf Urine Epithelial Cells (Auto) >30 /lpf Urine Bacteria (Auto) NEG Bedside Glucose 123 mg/dl 97 mg/dl Test 12/23/17 05:37 12/23/17 06:49 White Blood Count 11.41 K/uL Red Blood Count 4.39 M/uL Hemoglobin 13.1 g/dL Hematocrit 38.9 % Mean Corpuscular Volume 88.6 fL Mean Corpuscular Hemoglobin 29.8 pg Mean Corpuscular Hemoglobin Concent 33.7 g/dl RDW Standard Deviation 47.0 fL RDW Coefficient of Variation 14.4 % Platelet Count 232 K/uL Mean Platelet Volume 9.3 fL Sodium Level 139 mmol/L Potassium Level 4.1 mmol/L Chloride Level 106 mmol/L Carbon Dioxide Level 26 mmol/L Anion Gap 7.0 mmol/L Blood Urea Nitrogen 25 mg/dl Creatinine 1.68 mg/dl Est Creatinine Clear Calc Drug Dose 51.1 ml/min Estimated GFR () 51.5 Estimated GFR (Non- 44.4 BUN/Creatinine Ratio 14.7 Random Glucose 115 mg/dl Calcium Level 8.6 mg/dl Bedside Glucose 121 mg/dl Date/Time Source Procedure Growth Status 12/22/17 12:24 Urine , Clean Catch Urine Culture Pending Received Assessment & Plan Pt is 57 y/o M with PMH HTN, GERD, anxiety, BPH, kidney stones presented to ER with complaint of left flank pain. Patient reports has been having left flank pain and intermittent dysuria and urinary frequency for the past 2-3 weeks. LEFT OBSTRUCTING RENAL CALCULUS LEFT HYDRONEPHROSIS CT abd/pelvis showed bilateral nephrolithiasis with an obstructing or partially obstructing 9 mm calculus in the left renal pelvis and mild left hydronephrosis. Creatine on admission 1.8, trending down to 1.6 Continue IVF Urology on board Plan for Cysto with Uscope and left stent placement today Keep NPO for now Continue flomax Denies any chest pain and SOB. Medically stable to proceed with the procedure UTI Urine culture on 12/19/17 grew staph species not s aureus with no sensitivity. Received oupatient therapy with cipro 500mg BID for 3 days. UA on admission showed Positive nitrite/leukocytes Abx changed to IV rocephin, continue abx Urine cx pending ACUTE KIDNEY INJURY Cr on admission 1.82, GFR: 40 (baseline Cr ~1.2 and GFR >60) Creatine improve to 1.6 Continue IVF Avoid nephrotoxic agents Continue monitor BMP HYPOKALEMIA K stable Continue monitor BMP HTN Stable Continue amlodipine, atenolol DM II A1c 5.7 on 12/07/17 Controlled Continue holding metformin On Basal bolus insulin per protocol Lantus am dose hold since pt is NPO for procedure Monitor BS closely ANXIETY Continue buspirone Continue xanax prn Stable GERD continue PPI, sucralfate BPH continue flomax TOBACCO ABUSE Counseling on smoking cessation Denies nicotine patch DVT Prophylaxis SCDs CODE STATUS FULL CODE Current Inpatient Medications: Current Inpatient Medications Medications (Trade) Dose Ordered Sig/Zoe Route Start Time Stop Time Status Last Admin Dose Admin Acetaminophen (Tylenol Tab) 650 mg Q4H PRN PO 12/22/17 14:00 01/21/18 13:59 12/22/17 23:11 650 MG Polyethylene (Miralax Powder Packet) 17 gm DAILY PRN PO 12/22/17 15:00 01/21/18 14:59 Ondansetron HCl (Zofran Inj) 4 mg Q6H PRN IV 12/22/17 14:00 01/21/18 13:59 Potassium Chloride/Sodium Chloride 1,000 ml @ 100 mls/hr Q10H IV 12/22/17 16:00 12/23/17 11:59 12/23/17 03:03 100 MLS/HR Morphine Sulfate (MoRPHine SULFATE INJ) 2 mg Q3HWA PRN IV 12/22/17 14:00 01/05/18 13:59 12/22/17 23:56 2 MG Alprazolam (Xanax Tab) 0.5 mg TID PRN PO 12/22/17 14:15 01/21/18 14:14 12/22/17 23:08 0.5 MG Amlodipine Besylate (Norvasc Tab) 5 mg HS PO 12/22/17 21:00 01/21/18 20:59 12/22/17 20:23 5 MG Aspirin (Ecotrin Tab) 81 mg QAM PO 12/23/17 09:00 01/22/18 08:59 12/23/17 08:33 81 MG Atenolol (Tenormin Tab) 50 mg BID PO 12/22/17 21:00 01/21/18 20:59 12/23/17 08:32 50 MG Buspirone HCl (BusPAR TAB) 15 mg BID PO 12/22/17 21:00 01/21/18 20:59 12/23/17 08:33 15 MG Fluticasone Propionate (Flonase Nasal [place]) 2 sprays DAILY NA 12/23/17 09:00 01/22/18 08:59 Loratadine (Claritin Tab) 10 mg QAM PO 12/23/17 09:00 01/22/18 08:59 12/23/17 08:32 10 MG Sodium Chloride ([place] Nasal [place]) 2 sprays DAILY PRN NA 12/22/17 14:15 01/21/18 14:14 Sucralfate (Carafate Tab) 1 gm QID PO 12/22/17 17:00 01/21/18 16:59 12/23/17 08:32 1 GM Tamsulosin HCl (Flomax Cap) 0.4 mg QAM PO 12/23/17 09:00 01/22/18 08:59 12/23/17 08:32 0.4 MG Pantoprazole Sodium (Protonix Tab) 40 mg QAM PO 12/23/17 09:00 01/22/18 08:59 12/23/17 08:32 40 MG Insulin Glargine (Lantus Solostar Pen) 5 units Q12 SC 12/22/17 21:00 01/21/18 20:59 12/22/17 20:28 5 UNITS Glucose (Glucose 40% Gel) 15-30 GRAMS 15 GRAMS... UD PRN PO 12/22/17 14:15 01/21/18 14:14 Glucose (Glucose Chew Tab) 4-8 Tablets 4 Tabl... UD PRN PO 12/22/17 14:15 01/21/18 14:14 Dextrose (Dextrose 50% 50ML Syringe) 25-50ML 25ML FOR ... UD PRN IV 12/22/17 14:15 01/21/18 14:14 Glucagon (Glucagon Inj) 1 mg UD PRN SQ 12/22/17 14:15 01/21/18 14:14 Carbohydrates (Carbohydrates For Hypoglycemia) 15-30 GRAMS 15 grams if BSG 54-69... UD PRN PO 12/22/17 14:15 01/21/18 14:14 Ceftriaxone Sodium 1 gm/ Dextrose 50 ml @ 100 mls/hr Q24H IV 12/22/17 16:00 01/01/18 14:44 12/22/17 16:03 100 MLS/HR Insulin Aspart (novoLOG ASPART) SLIDING SCALE If C... Q6 SC 12/23/17 12:00 01/22/18 11:59 Fentanyl Citrate (Fentanyl Inj) 25 mcg Q5M PRN IV 12/23/17 10:45 12/24/17 10:44 UNV Ondansetron HCl (Zofran Inj) 4 mg ONE PRN IV 12/23/17 10:45 01/22/18 10:44 UNV Ephedrine Sulfate (EpHEDrine SULFATE INJ) 5 mg Q5M PRN IV 12/23/17 10:45 12/24/17 10:44 UNV Atropine Sulfate (Atropine Sulfate 0.1mg/ml Inj) 0.5 mg Q1M PRN IV 12/23/17 10:45 12/24/17 10:44 UNV
[2017-12-23] MEDS ORDERED: Cysto-Conray II 17.2% 250ML BOTTLE ONE (11:23)
[2017-12-23] MEDS ORDERED: ONDANSETRON INJ 2 MG/ML 2 ML VIAL ONE (11:53)
[2017-12-23] MEDS ORDERED: PHENYLEPHRINE 100MCG/ML 5ML SYR ONE (11:53)
--- NOTE | 2017-12-23 11:59 | [facility] Post Operative Brief Note ---
Immediate Operative Summary Operative Date Dec 23, 2017. Pre-Operative Diagnosis Left Ureteral Calculus Post-Operative Diagnosis Left Ureteral Calculus Procedure(s) Performed Cystoscopy Left Retro Stent placement Surgeon Dr. Quispe Toll Line Mechanic Surgeon(s) NONE Estimated Blood Loss 0 ml Findings Consistent with Post-Op Diagnosis Specimens None per surgeon Drains None Anesthesia Type General Complication(s) none Disposition Accompanied Pt To Recover: yes Overlapping Procedure I was immediately available: during the entire case
[2017-12-23] MEDS ORDERED: INSULIN ASPART 100 UNITS/ML 3 ML PEN SC SCH (12:00)
--- NOTE | 2017-12-23 12:31 | DIAGNOSTIC IMAGING REPORT ---
RETROGRADE INCLUDES KUB CLINICAL HISTORY: STONE COMPARISON STUDY: CT of the abdomen and pelvis December 22, 2017. Fluoroscopy time: 11.6 seconds. FINDINGS: 2 fluoroscopic images from a left retrograde exam were submitted for interpretation. These images demonstrate cannulation of the left ureter and placement of a left ureteral stent which appears well-positioned. Apparent density inferior medial to the left collecting system is probably artifactual. Extraluminal contrast could appear similar although is considered less likely. IMPRESSION: Fluoroscopic images demonstrating placement of a left ureteral stent. Electronically signed by: Sergio Johnson M.D. 12/23/2017 12:30 PM Dictated Date/Time: 12/23/2017 12:28 PM
--- NOTE | 2017-12-23 13:15 | Anesthesiology Progress Note ---
Anesthesia Post Op Note Date & Time Dec 23, 2017 at 13:14 Vital Signs Pain Intensity: 0 Vital Signs Past 12 Hours Date Time Temp Pulse Resp B/P (MAP) Pulse Ox O2 Delivery O2 Flow Rate FiO2 12/23/17 13:07 36.8 81 20 112/73 (86) 95 Room Air 12/23/17 13:06 95 Room Air 12/23/17 13:04 95 Room Air 12/23/17 12:46 108/68 12/23/17 12:43 80 21 98 12/23/17 12:43 80 21 12/23/17 12:43 37.6 98 Nasal Cannula 2 12/23/17 12:41 107/68 12/23/17 12:38 81 21 12/23/17 12:38 80 21 98 12/23/17 12:37 80 21 12/23/17 12:37 80 21 98 12/23/17 12:36 107/68 12/23/17 12:32 82 22 12/23/17 12:32 82 22 98 12/23/17 12:31 102/68 12/23/17 12:27 82 21 98 12/23/17 12:27 82 21 12/23/17 12:26 103/68 12/23/17 12:25 82 26 98 12/23/17 12:25 81 26 12/23/17 12:21 106/71 12/23/17 12:20 80 22 12/23/17 12:20 80 22 98 12/23/17 12:16 110/68 12/23/17 12:15 82 19 12/23/17 12:15 82 19 98 12/23/17 12:11 103/47 12/23/17 12:10 84 12/23/17 12:10 38.1 85 18 103/47 98 Nasal Cannula 2 12/23/17 12:10 84 95 12/23/17 09:36 37.3 20 12/23/17 07:26 Room Air 12/23/17 07:02 37.4 102 24 111/68 (82) 93 Room Air Notes Mental Status: alert / awake / arousable, participated in evaluation Pt Amnestic to Procedure: Yes Nausea / Vomiting: adequately controlled Pain: adequately controlled Airway Patency, RR, SpO2: stable & adequate BP & HR: stable & adequate Hydration State: stable & adequate Anesthetic Complications: no major complications apparent
[2017-12-23] MEDS: MoRPHine SULFATE 2 MG/ML CARP IV PRN ×2 (13:36→21:30)
[2017-12-23] MEDS: CEFTRIAXONE SOD INJ 1 GM in DEXTROSE 5% ADD-VANTAGE 50ML 50 ML IV SCH (15:59)
[2017-12-23] MEDS: INSULIN ASPART 100 UNITS/ML 3 ML PEN SC SCH ×2 (17:15→21:00)
[2017-12-23] MEDS: ALPRAZOLAM 0.5 MG TAB PO PRN (18:12)
[2017-12-23] MEDS: AMLODIPINE BESYLATE 5 MG TAB PO SCH (21:17)
[2017-12-24] VITALS (8 sets, daily range): BP systolic 104–138; BP diastolic 61–90; PULSE 71–89; TEMP 36.5–37.3; O2SAT 93–98
[2017-12-24] MEDS: MoRPHine SULFATE 2 MG/ML CARP IV PRN (05:05)
[2017-12-24] MEDS: INSULIN ASPART 100 UNITS/ML 3 ML PEN SC SCH ×4 (08:37→21:00)
[2017-12-24] MEDS: INSULIN GLARGINE SOLOSTAR 100 UNITS/ML 3 ML PEN SC SCH ×2 (08:38→21:16)
[2017-12-24] MEDS: PANTOprazole SOD 40 MG TAB PO SCH (08:39)
[2017-12-24] MEDS: BusPIRone 15 MG TAB PO SCH ×2 (08:39→21:14)
[2017-12-24] MEDS: LORATADINE 10 MG TAB PO SCH (08:39)
[2017-12-24] MEDS: SUCRALFATE 1 GM TAB PO SCH ×4 (08:39→21:14)
[2017-12-24] MEDS: FLUTICASONE PROPIONATE NA SPR 16 GM BTL SCH (08:40)
[2017-12-24] MEDS: TAMSULOSIN HCL 0.4 MG CAP PO SCH (08:40)
[2017-12-24 09:26] LABS: HEMATOCRIT 35.8 % (42-52); HEMOGLOBIN 12.1 g/dL (14.0-18.0); MEAN CELL VOLUME 87.5 fL (80-100); MEAN CORPUSCULAR HEMOGLOBIN 29.6 pg (25-34); MEAN CORPUSCULAR HGB CONC 33.8 g/dl (32-36); PLATELET COUNT 251 K/uL (130-400); RED CELL DISTRIBUTION WIDTH CV 14.2 % (11.5-14.5); RED CELL DISTRIBUTION WIDTH SD 45.9 fL (36.4-46.3); WHITE BLOOD COUNT 9.32 K/uL (4.8-10.8)
--- NOTE | 2017-12-24 09:49 | OPERATIVE REPORT ---
DATE OF OPERATION: 12/23/2017 SURGEON: Camron Quispe MD. PREOPERATIVE DIAGNOSIS: Left ureteral calculus. POSTOPERATIVE DIAGNOSIS: Left ureteral calculus. PROCEDURE: Cystoscopy, left retrograde pyelogram, left ureteral stent placement. ANESTHESIA: General endotracheal. COMPLICATIONS: None. SPECIMENS: None. DRAINS: A 6-[place] x 26 cm ureteral stent. ESTIMATED BLOOD LOSS: Minimal. CONDITION: Stable. INDICATIONS: Mr. Real is a 57-year-old gentleman with a history of kidney stones, recently presented with a 9 mm left proximal ureteral calculus with an elevated creatinine. DESCRIPTION OF PROCEDURE: The patient was brought to the operative suite and positively identified, placed on the table in supine position. After induction of general anesthesia, placed in dorsal lithotomy position. The genitalia prepped and draped in sterile fashion. Preoperative antibiotics were administered and time-out was performed. A rigid cystoscope was passed through the urethra and bladder. Urethra was normal. The prostate was mildly enlarged. Bladder was unremarkable. I turned my attention to the left ureteral orifice. This was intubated with an open-ended catheter and retrograde pyelogram was performed. This showed normal distal ureter, but a filling defect in the proximal ureter consistent with the stone seen on the previous CT scan. There was hydronephrosis. A sensor wire was passed up to the level of the renal pelvis beyond the stone. Once this was performed, a significant amount of debris drained from the ureteral orifice. At this time, a 6-[place]is[place] x 26 cm ureteral stent was placed with a good curl seen proximally and distally. The strings were cut short, and the bladder was drained. The patient tolerated the procedure well. Sponge and needle counts were correct. Taken to PACU in stable condition. Will followup in 1-2 weeks for staged treatment of the kidney stone. I attest to the content of the Intraoperative Record and any orders documented therein. Any exception s are noted below.
[2017-12-24 10:05] LABS: CALCIUM 9.1 mg/dl (8.5-10.1); CREATININE 1.28 mg/dl (0.60-1.40); POTASSIUM 3.6 mmol/L (3.5-5.1)
[2017-12-24] MEDS: CEFTRIAXONE SOD INJ 1 GM in DEXTROSE 5% ADD-VANTAGE 50ML 50 ML IV SCH (16:26)
--- NOTE | 2017-12-24 16:35 | Progress Note ---
Medicine Progress Note Date & Time of Visit: Dec 24, 2017 at 16:29. Subjective Pt was seen and examined Sitting at the edge of the bed with no distress Pt said that on/off he does have some tenderness in the left nilesh area during urination He said that once finish urinating his pain resolved Denies any chest pain, palpitation, dizziness and SOB Objective Last 8 Hrs Date Time Temp Pulse Resp B/P (MAP) Pulse Ox O2 Delivery O2 Flow Rate FiO2 12/24/17 14:52 36.8 82 18 119/78 (92) 95 Room Air 12/24/17 11:52 37.2 84 16 138/90 (106) 97 Room Air Physical Exam: General- No acute distress Head- atraumatic Eyes- PERRL, EOMI ENT- oropharynx clear Neck- supple, no JVD Lungs- No wheezing Heart- regular rhythm Abdomen- normal bowel sounds, soft Extremities- no calf tenderness Neuro- alert, oriented x 3; PERRL, EOMI; no facial palsy Skin- warm & dry Laboratory Results: Last 24 Hours Test 12/23/17 16:59 12/23/17 20:37 12/24/17 07:59 12/24/17 09:17 Bedside Glucose 93 mg/dl 115 mg/dl 110 mg/dl White Blood Count 9.32 K/uL Red Blood Count 4.09 M/uL Hemoglobin 12.1 g/dL Hematocrit 35.8 % Mean Corpuscular Volume 87.5 fL Mean Corpuscular Hemoglobin 29.6 pg Mean Corpuscular Hemoglobin Concent 33.8 g/dl RDW Standard Deviation 45.9 fL RDW Coefficient of Variation 14.2 % Platelet Count 251 K/uL Mean Platelet Volume 9.0 fL Sodium Level 139 mmol/L Potassium Level 3.6 mmol/L Chloride Level 104 mmol/L Carbon Dioxide Level 25 mmol/L Anion Gap 10.0 mmol/L Blood Urea Nitrogen 16 mg/dl Creatinine 1.28 mg/dl Est Creatinine Clear Calc Drug Dose 67.1 ml/min Estimated GFR () 71.5 Estimated GFR (Non- 61.7 BUN/Creatinine Ratio 12.8 Random Glucose 131 mg/dl Calcium Level 9.1 mg/dl Test 12/24/17 12:05 Bedside Glucose 139 mg/dl Assessment & Plan Pt is 57 y/o M with PMH HTN, GERD, anxiety, BPH, kidney stones presented to ER with complaint of left flank pain. Patient reports has been having left flank pain and intermittent dysuria and urinary frequency for the past 2-3 weeks. LEFT OBSTRUCTING RENAL CALCULUS LEFT HYDRONEPHROSIS CT abd/pelvis showed bilateral nephrolithiasis with an obstructing or partially obstructing 9 mm calculus in the left renal pelvis and mild left hydronephrosis. S/P day#1 Cystoscopy, left retrograde pyelogram, left ureteral stent placement performed by Dr. Quispe Case discussed urology dr. Jose Enrique [facility] office will contact him for follow up about the lithotripsy and stent removal Creatine on admission 1.8 Creatine back to baseline Continue Flomax Continue pain control UTI Urine culture on 12/19/17 grew staph species not s aureus with no sensitivity. Received oupatient therapy with cipro 500mg BID for 3 days. UA on admission showed Positive nitrite/leukocytes Continue IV rocephin for now Urine cx positive for staph species Follow up with sensitivity Will complete 7 to 10 days of abx course ACUTE KIDNEY INJURY Cr on admission 1.82, GFR: 40 (baseline Cr ~1.2 and GFR >60) Creatine back to normal Avoid nephrotoxic agents Continue monitor BMP Resolved HYPOKALEMIA K stable Continue monitor BMP HTN Stable Continue amlodipine, atenolol DM II A1c 5.7 on 12/07/17 Controlled Continue holding metformin On Basal bolus insulin per protocol Lantus am dose hold since pt is NPO for procedure Monitor BS closely ANXIETY Continue buspirone Continue xanax prn Stable GERD continue PPI, sucralfate BPH continue flomax TOBACCO ABUSE Counseling on smoking cessation Denies nicotine patch DVT Prophylaxis SCDs CODE STATUS FULL CODE DISPOSITION Will discharge home tomorrow Current Inpatient Medications: Current Inpatient Medications Medications (Trade) Dose Ordered Sig/Zoe Route Start Time Stop Time Status Last Admin Dose Admin Acetaminophen (Tylenol Tab) 650 mg Q4H PRN PO 12/22/17 14:00 01/21/18 13:59 12/22/17 23:11 650 MG Polyethylene (Miralax Powder Packet) 17 gm DAILY PRN PO 12/22/17 15:00 01/21/18 14:59 Ondansetron HCl (Zofran Inj) 4 mg Q6H PRN IV 12/22/17 14:00 01/21/18 13:59 Morphine Sulfate (MoRPHine SULFATE INJ) 2 mg Q3HWA PRN IV 12/22/17 14:00 01/05/18 13:59 12/24/17 05:05 2 MG Alprazolam (Xanax Tab) 0.5 mg TID PRN PO 12/22/17 14:15 01/21/18 14:14 12/23/17 18:12 0.5 MG Amlodipine Besylate (Norvasc Tab) 5 mg HS PO 12/22/17 21:00 01/21/18 20:59 12/23/17 21:17 5 MG Aspirin (Ecotrin Tab) 81 mg QAM PO 12/23/17 09:00 01/22/18 08:59 Future Hold 12/23/17 08:33 81 MG Atenolol (Tenormin Tab) 50 mg BID PO 12/22/17 21:00 01/21/18 20:59 12/24/17 08:39 50 MG Buspirone HCl (BusPAR TAB) 15 mg BID PO 12/22/17 21:00 01/21/18 20:59 12/24/17 08:39 15 MG Fluticasone Propionate (Flonase Nasal [place]) 2 sprays DAILY NA 12/23/17 09:00 01/22/18 08:59 12/24/17 08:40 2 SPRAYS Loratadine (Claritin Tab) 10 mg QAM PO 12/23/17 09:00 01/22/18 08:59 12/24/17 08:39 10 MG Sodium Chloride ([place] Nasal [place]) 2 sprays DAILY PRN NA 12/22/17 14:15 01/21/18 14:14 Sucralfate (Carafate Tab) 1 gm QID PO 12/22/17 17:00 01/21/18 16:59 12/24/17 13:44 1 GM Tamsulosin HCl (Flomax Cap) 0.4 mg QAM PO 12/23/17 09:00 01/22/18 08:59 12/24/17 08:40 0.4 MG Pantoprazole Sodium (Protonix Tab) 40 mg QAM PO 12/23/17 09:00 01/22/18 08:59 12/24/17 08:39 40 MG Insulin Glargine (Lantus Solostar Pen) 5 units Q12 SC 12/22/17 21:00 01/21/18 20:59 12/23/17 21:25 5 UNITS Glucose (Glucose 40% Gel) 15-30 GRAMS 15 GRAMS... UD PRN PO 12/22/17 14:15 01/21/18 14:14 Glucose (Glucose Chew Tab) 4-8 Tablets 4 Tabl... UD PRN PO 12/22/17 14:15 01/21/18 14:14 Dextrose (Dextrose 50% 50ML Syringe) 25-50ML 25ML FOR ... UD PRN IV 12/22/17 14:15 01/21/18 14:14 Glucagon (Glucagon Inj) 1 mg UD PRN SQ 12/22/17 14:15 01/21/18 14:14 Carbohydrates (Carbohydrates For Hypoglycemia) 15-30 GRAMS 15 grams if BSG 54-69... UD PRN PO 12/22/17 14:15 01/21/18 14:14 Ceftriaxone Sodium 1 gm/ Dextrose 50 ml @ 100 mls/hr Q24H IV 12/22/17 16:00 01/01/18 14:44 12/23/17 15:59 100 MLS/HR Insulin Aspart (novoLOG ASPART) SLIDING SCALE If C... ACHS SC 12/23/17 17:15 01/22/18 17:14 12/24/17 12:33 3 UNITS
[2017-12-24] MEDS: OXYCODONE/ACETAMINOPHEN 5-325 TAB PO PRN (16:52)
[2017-12-24] MEDS: AMLODIPINE BESYLATE 5 MG TAB PO SCH (21:00)
[2017-12-24] MEDS: ALPRAZOLAM 0.5 MG TAB PO PRN (21:22)
[2017-12-24] MEDS: ACETAMINOPHEN 325 MG TAB PO PRN (23:32)
[2017-12-25] MEDS: OXYCODONE/ACETAMINOPHEN 5-325 TAB PO PRN ×2 (01:28→09:48)
[2017-12-25 06:57] VITALS: BP 126/70; PULSE 79; TEMP 36.6; O2SAT 95
[2017-12-25] MEDS: ACETAMINOPHEN 325 MG TAB PO PRN (07:36)
[2017-12-25] MEDS: INSULIN ASPART 100 UNITS/ML 3 ML PEN SC SCH ×2 (08:56→13:32)
[2017-12-25] MEDS: INSULIN GLARGINE SOLOSTAR 100 UNITS/ML 3 ML PEN SC SCH (08:57)
[2017-12-25] MEDS: LORATADINE 10 MG TAB PO SCH (08:57)
[2017-12-25] MEDS: PANTOprazole SOD 40 MG TAB PO SCH (08:58)
[2017-12-25] MEDS: TAMSULOSIN HCL 0.4 MG CAP PO SCH (08:58)
[2017-12-25] MEDS: SUCRALFATE 1 GM TAB PO SCH ×2 (08:58→13:30)
[2017-12-25] MEDS: BusPIRone 15 MG TAB PO SCH (08:59)
[2017-12-25] MEDS: FLUTICASONE PROPIONATE NA SPR 16 GM BTL SCH (08:59)
--- NOTE | 2017-12-25 13:30 | Progress Note ---
Medicine Progress Note Date & Time of Visit: Dec 25, 2017 at 13:21. Subjective Pt was seen and examined Sitting at the edge of the bed with no distress Pt said that the pain medicine help but does not last up to 8hr He said that his pain usually reoccurs after 6hrs Denies any chest pain, palpitation, dizziness and SOB Objective Last 8 Hrs Date Time Temp Pulse Resp B/P (MAP) Pulse Ox O2 Delivery O2 Flow Rate FiO2 12/25/17 07:41 Room Air 12/25/17 06:57 36.6 79 16 126/70 (88) 95 Room Air Physical Exam: General- No acute distress Head- atraumatic Eyes- PERRL, EOMI ENT- oropharynx clear Neck- supple, no JVD Lungs- No wheezing Heart- regular rhythm Abdomen- normal bowel sounds, soft Extremities- no calf tenderness Neuro- alert, oriented x 3; PERRL, EOMI; no facial palsy Skin- warm & dry Laboratory Results: Last 24 Hours Test 12/24/17 17:18 12/24/17 20:29 12/25/17 08:19 12/25/17 12:06 Bedside Glucose 112 mg/dl 128 mg/dl 127 mg/dl 112 mg/dl Assessment & Plan Pt is 57 y/o M with PMH HTN, GERD, anxiety, BPH, kidney stones presented to ER with complaint of left flank pain. Patient reports has been having left flank pain and intermittent dysuria and urinary frequency for the past 2-3 weeks. LEFT OBSTRUCTING RENAL CALCULUS LEFT HYDRONEPHROSIS CT abd/pelvis showed bilateral nephrolithiasis with an obstructing or partially obstructing 9 mm calculus in the left renal pelvis and mild left hydronephrosis. S/P day#1 Cystoscopy, left retrograde pyelogram, left ureteral stent placement performed by Dr. Quispe Case discussed urology dr. Jose Enrique [facility] office will contact him for follow up about the lithotripsy and stent removal Creatine on admission 1.8 Creatine back to normal Continue Flomax Continue pain control already had a follow up appointment with urology Dr. Zhou tomorrow at 4PM UTI Urine culture on 12/19/17 grew staph species not s aureus with no sensitivity. Received oupatient therapy with cipro 500mg BID for 3 days. UA on admission showed Positive nitrite/leukocytes Continue IV rocephin for now Urine cx positive for staph species Will discharge on Keflex to complete 7 to 10 days course of abx ACUTE KIDNEY INJURY Cr on admission 1.82, GFR: 40 (baseline Cr ~1.2 and GFR >60) Creatine back to normal Avoid nephrotoxic agents Continue monitor BMP Resolved HYPOKALEMIA K stable Continue monitor BMP HTN Stable Continue amlodipine, atenolol DM II A1c 5.7 on 12/07/17 Controlled Continue holding metformin On Basal bolus insulin per protocol Lantus am dose hold since pt is NPO for procedure Monitor BS closely ANXIETY Continue buspirone Continue xanax prn Stable GERD continue PPI, sucralfate BPH continue flomax TOBACCO ABUSE Counseling on smoking cessation Denies nicotine patch DVT Prophylaxis SCDs CODE STATUS FULL CODE DISPOSITION Will discharge home today Follow up with urology Dr. Zhou tomorrow at 4pm Current Inpatient Medications: Current Inpatient Medications Medications (Trade) Dose Ordered Sig/Zoe Route Start Time Stop Time Status Last Admin Dose Admin Acetaminophen (Tylenol Tab) 650 mg Q4H PRN PO 12/22/17 14:00 01/21/18 13:59 12/25/17 07:36 650 MG Polyethylene (Miralax Powder Packet) 17 gm DAILY PRN PO 12/22/17 15:00 01/21/18 14:59 Ondansetron HCl (Zofran Inj) 4 mg Q6H PRN IV 12/22/17 14:00 01/21/18 13:59 Alprazolam (Xanax Tab) 0.5 mg TID PRN PO 12/22/17 14:15 01/21/18 14:14 12/24/17 21:22 0.5 MG Amlodipine Besylate (Norvasc Tab) 5 mg HS PO 12/22/17 21:00 01/21/18 20:59 12/23/17 21:17 5 MG Aspirin (Ecotrin Tab) 81 mg QAM PO 12/23/17 09:00 01/22/18 08:59 Future Hold 12/23/17 08:33 81 MG Atenolol (Tenormin Tab) 50 mg BID PO 12/22/17 21:00 01/21/18 20:59 12/25/17 08:58 50 MG Buspirone HCl (BusPAR TAB) 15 mg BID PO 12/22/17 21:00 01/21/18 20:59 12/25/17 08:59 15 MG Fluticasone Propionate (Flonase Nasal [place]) 2 sprays DAILY NA 12/23/17 09:00 01/22/18 08:59 12/25/17 08:59 2 SPRAYS Loratadine (Claritin Tab) 10 mg QAM PO 12/23/17 09:00 01/22/18 08:59 12/25/17 08:57 10 MG Sodium Chloride ([place] Nasal [place]) 2 sprays DAILY PRN NA 12/22/17 14:15 01/21/18 14:14 Sucralfate (Carafate Tab) 1 gm QID PO 12/22/17 17:00 01/21/18 16:59 12/25/17 08:58 1 GM Tamsulosin HCl (Flomax Cap) 0.4 mg QAM PO 12/23/17 09:00 01/22/18 08:59 12/25/17 08:58 0.4 MG Pantoprazole Sodium (Protonix Tab) 40 mg QAM PO 12/23/17 09:00 01/22/18 08:59 12/25/17 08:58 40 MG Insulin Glargine (Lantus Solostar Pen) 5 units Q12 SC 12/22/17 21:00 01/21/18 20:59 12/25/17 08:57 5 UNITS Glucose (Glucose 40% Gel) 15-30 GRAMS 15 GRAMS... UD PRN PO 12/22/17 14:15 01/21/18 14:14 Glucose (Glucose Chew Tab) 4-8 Tablets 4 Tabl... UD PRN PO 12/22/17 14:15 01/21/18 14:14 Dextrose (Dextrose 50% 50ML Syringe) 25-50ML 25ML FOR ... UD PRN IV 12/22/17 14:15 01/21/18 14:14 Glucagon (Glucagon Inj) 1 mg UD PRN SQ 12/22/17 14:15 01/21/18 14:14 Carbohydrates (Carbohydrates For Hypoglycemia) 15-30 GRAMS 15 grams if BSG 54-69... UD PRN PO 12/22/17 14:15 01/21/18 14:14 Ceftriaxone Sodium 1 gm/ Dextrose 50 ml @ 100 mls/hr Q24H IV 12/22/17 16:00 01/01/18 14:44 12/24/17 16:26 100 MLS/HR Insulin Aspart (novoLOG ASPART) SLIDING SCALE If C... ACHS SC 12/23/17 17:15 01/22/18 17:14 12/25/17 08:56 3 UNITS Oxycodone/ Acetaminophen (Percocet 5-325mg Tab) 1 tab Q8 PRN PO 12/24/17 16:45 01/07/18 16:44 12/25/17 09:48 1 TAB
--- NOTE | 2017-12-25 14:23 | Discharge Instructions ---
Discharge Instructions Date of Service Dec 25, 2017. Admission Reason for Admission: Hydronephrosis,Left Discharge Discharge Diagnosis / Problem: LEFT OBSTRUCTING RENAL CALCULUS , LEFT HYDRONEPHROSIS, UTI Discharge Goals Goal(s): Decrease discomfort, Increase independence, Improve disease control Activity Recommendations Activity Limitations: resume your previous activity ( TOLERATED) . Instructions / Follow-Up Instructions / Follow-Up Already has a Follow up appointment with urology Dr. Zhou on 12/26 (tomorrow) Follow up with your primary care provider Dr. Luis Reeves (Dr. Hill's colleague) on 01/01 at 12:45 PM Complete the course of antibiotic with Keflex Hold narcotic if you develop any lethargy and drowsiness Do not drive or operate any machine after taking the pain medicine (Narcotic) Hold metformin for now until seeing urology Dr. Zhou tomorrow Current Hospital Diet Patient's current hospital diet: Diabetes Type 2 Diet, AHA Diet (Heart Healthy) Discharge Diet Recommended Diet: AHA Diet (Heart Healthy), Diabetes Type 2 Diet Procedures Procedures Performed: Cystoscopy Left Retro Stent placement Pending Studies Studies pending at discharge: yes List of pending studies: Final urine culture Medical Emergencies . Who to Call and When: Medical Emergencies: If at any time you feel your situation is an emergency, please call 911 immediately. . Non-Emergent Contact Non-Emergency issues call your: Primary Care Provider, Urologist Call Non-Emergent contact if: temperature is above 101 . . "Provider Documentation" section prepared by Daysi Hung. . [place] Drug Monitoring Program Search Results: patient reviewed within database
[2017-12-25] MEDS ORDERED: KFL500 PO (14:28)
[2017-12-25] MEDS ORDERED: OXYC-57 PO (14:28)
[2017-12-25] MEDS ORDERED: CEPHALEXIN MONOHYDRATE 500 MG CAP PO ONE (14:30)
[2017-12-25 15:00] VITALS: BP 133/78; PULSE 78; TEMP 36.4; O2SAT 98
[2017-12-25 15:16] VITALS: BP 133/78; PULSE 78; TEMP 36.4; O2SAT 98
--- NOTE | 2017-12-25 17:30 | Discharge Summary ---
Discharge Summary Date of Service Dec 25, 2017. Discharge Summary Admission Date: Dec 22, 2017 at 14:02 Discharge Date: Dec 25, 2017 Discharge Disposition: Home Principal Diagnosis: LEFT OBSTRUCTING RENAL CALCULUS Secondary Diagnoses/Problems: LEFT HYDRONEPHROSIS UTI ACUTE KIDNEY INJURY HYPOKALEMIA ANXIETY DM TYPE 2 TOBACCO ABUSE BPH GERD HTN Procedures: S/P Cystoscopy, left retrograde pyelogram, left ureteral stent placement performed by Dr. Quispe [~ rep ct add3]] RETROGRADE INCLUDES KUB CLINICAL HISTORY: STONE COMPARISON STUDY: CT of the abdomen and pelvis December 22, 2017. Fluoroscopy time: 11.6 seconds. FINDINGS: 2 fluoroscopic images from a left retrograde exam were submitted for interpretation. These images demonstrate cannulation of the left ureter and placement of a left ureteral stent which appears well-positioned. Apparent density inferior medial to the left collecting system is probably artifactual. Extraluminal contrast could appear similar although is considered less likely. IMPRESSION: Fluoroscopic images demonstrating placement of a left ureteral stent. Electronically signed by: Sergio Johnson M.D. 12/23/2017 12:30 PM Dictated Date/Time: 12/23/2017 12:28 PM ABD/PELVIS WITHOUT FOR STONE CLINICAL HISTORY: 57 years-old Male presenting with ro kidney stone. TECHNIQUE: Multidetector CT of the abdomen and pelvis was performed without the use of intravenous contrast. IV contrast: None. A dose lowering technique was used consistent with the principles of ALARA (as low as reasonably achievable). COMPARISON: None. CT DOSE (mGy.cm): The estimated cumulative dose is 1272.31 mGy.cm. FINDINGS: Artist Consultant topogram: Unavailable. Lung bases: Minimal basilar opacities, likely atelectasis. Mild bronchial wall thickening suggested. Normal heart size. No pericardial or pleural effusion. Liver: Normal morphology. Density consistent with hepatic steatosis. Biliary: No gross biliary ductal dilatation allowing for noncontrast technique. Normal gallbladder. Pancreas: Mild parenchymal atrophy. Spleen: Normal noncontrast appearance. Adrenal glands: Normal noncontrast appearance. Kidneys and ureters: 6 mm nonobstructing calculus in the interpolar region of the right kidney. Small hyperdensity at the lower pole the right kidney indeterminate but possibly hemorrhagic or proteinaceous cyst (series 3 image 214). Multiple nonobstructing left renal calculi, the dominant calculus at the lower pole measuring 11 mm. Mild left pelvocaliectasis with an obstructing or partially obstructing 9 mm calculus at the left renal pelvis. Bilateral nonspecific mild perinephric fat stranding. Ureters normal bilaterally. Bladder: Incompletely evaluated secondary to underdistention. Pelvic organs: Prostate and seminal vesicles normal. Calcification in the prostate may relate to atrophic change. Bowel: Few scattered colonic diverticula in the descending and sigmoid colon. The appendix is normal. No bowel obstruction. Peritoneal cavity: No free fluid or intraperitoneal gas. Trace left retroperitoneal fluid. Lymph nodes: No gross lymphadenopathy allowing for noncontrast technique. Vasculature: Atherosclerosis of the normal caliber abdominal aorta. Abdominal wall: Normal. Musculoskeletal: Degenerative changes of the spine. IMPRESSION: 1. Bilateral nephrolithiasis with an obstructing or partially obstructing 9 mm calculus in the left renal pelvis and mild left hydronephrosis. 2. Hepatic steatosis. 3. Mild bronchial wall thickening at the lung bases, nonspecific. This may indicate reactive airways disease or bronchiolitis. Electronically signed by: Rickie Beckwith M.D. 12/22/2017 12:38 PM Dictated Date/Time: 12/22/2017 12:33 PM Medication Reconciliation New Medications: Cephalexin Monohydrate (Cephalexin) 500 Mg Cap 500 MG PO BID for 7 Days, #14 CAP Changed Medications: Oxycodone/Acetaminophen 5MG/325MG (Percocet 5MG/325MG) Tab 1 TABLET PO Q6HWA PRN for Pain, #10 TAB (Changed from: Q4H; PAIN) hold for drowsiness and lethargy Continued Medications: Alprazolam (Xanax) 0.5 Mg Tab 0.5 MG PO TID PRN for Anxiety, TAB Amlodipine (Norvasc) 5 Mg Tab 5 MG PO HS, TAB Aspirin (Aspirin 81) 81 Mg Tab 81 MG PO QAM Atenolol (Tenormin) 50 Mg Tab 50 MG PO BID Buspirone Hcl (Buspar) 15 Mg Tab 15 MG PO BID, TAB Choline Fenofibrate (Fenofibric Acid Dr) 135 Mg Cap 135 MG PO QAM Esomeprazole Magnesium (Nexium) 40 Mg Cap 40 MG PO DAILY, CAP Fluticasone Propionate (Nasal) (Flonase Allergy Relief) 50 Mcg/Act Spr 2 SPRAYS NA DAILY Loratadine (Claritin) 10 Mg Tab 10 MG PO QAM, TAB Melatonin (Melatonin Maximum Strengt) 5 Mg Tab 5 MG PO HS Metformin Hcl (Glucophage) 500 Mg Tab 500 MG PO BID, TAB Saline (Ra Saline Nasal [place]) 0.65 % Spr 1 SPRAY NA DAILY PRN for Nasal Congestion Sucralfate (Sucralfate) 1 Gm Tab 1 GM PO QID, TAB 1 tab po 30 minutes prior to meals, and at bedtime Tamsulosin HCl (Tamsulosin HCl) 0.4 Mg Cap 0.4 MG PO QAM Discontinued Medications: Ciprofloxacin (Ciprofloxacin HCl) 500 Mg Tab 1 TAB PO BID Admission Information HPI (per Admitting provider): Pt is 57 y/o M with PMH HTN, GERD, anxiety, BPH, kidney stones presented to ER with complaint of left flank pain. Patient reports has been having left flank pain and intermittent dysuria and urinary frequency for the past 2-3 weeks. Having chills this week, has not been taking his temperature. Past 3 days has been vomiting 2-3 times a day. Saw PCP on 12/18/17, had renal ultrasound: Mild left hydronephrosis, bilateral renal calculi. Patient was started on Cipro 500 twice daily 10 days. Urine culture: Staph species, not staph aureus. Patient reports still with intermittent dysuria and urinary frequency. Today his urine looked dark and is unsure if there is blood. Patient states took 1 oxycodone causes increased nausea however did not help much with pain. BM this a.m. Denies fever/chills, diaphoresis, ZAMORA, dizziness, syncope, vision changes, neck pain, CP, SOB, orthopnea, palpitations, cough, abdominal pain, paresthesias, weakness, extremity edema, rashes. History lithotripsy and removal renal stones in past. Physical Exam (per Admitting): General Appearance: no apparent distress, + obese Head: normocephalic, atraumatic Eyes: normal inspection, sclerae normal ENT: hearing grossly normal, pharynx normal, + pertinent finding (mucuous membranes mildly dry) Neck: supple, trachea midline Respiratory/Chest: lungs clear, normal breath sounds, no respiratory distress Cardiovascular: regular rate, rhythm, no murmur Abdomen/GI: normal bowel sounds, non tender, soft Back: + left CVA tenderness Extremities/Musculoskelatal: no calf tenderness, normal capillary refill, no pedal edema Neurologic/Psych: alert, normal mood/affect, oriented x 3 Skin: warm/dry Hospital Course Pt is 57 y/o M with PMH HTN, GERD, anxiety, BPH, kidney stones presented to ER with complaint of left flank pain. Patient reports has been having left flank pain and intermittent dysuria and urinary frequency for the past 2-3 weeks. LEFT OBSTRUCTING RENAL CALCULUS LEFT HYDRONEPHROSIS CT abd/pelvis showed bilateral nephrolithiasis with an obstructing or partially obstructing 9 mm calculus in the left renal pelvis and mild left hydronephrosis. S/P day#1 Cystoscopy, left retrograde pyelogram, left ureteral stent placement performed by Dr. Quispe Case discussed urology dr. Jose Enrique [facility] office will contact him for follow up about the lithotripsy and stent removal Creatine on admission 1.8 Creatine back to normal Continue Flomax Continue pain control already had a follow up appointment with urology Dr. Zhou tomorrow at 4PM UTI Urine culture on 12/19/17 grew staph species not s aureus with no sensitivity. Received oupatient therapy with cipro 500mg BID for 3 days. UA on admission showed Positive nitrite/leukocytes Continue IV rocephin for now Urine cx positive for staph species Will discharge on Keflex to complete 7 to 10 days course of abx ACUTE KIDNEY INJURY Cr on admission 1.82, GFR: 40 (baseline Cr ~1.2 and GFR >60) Creatine back to normal Avoid nephrotoxic agents Continue monitor BMP Resolved HYPOKALEMIA K stable Continue monitor BMP HTN Stable Continue amlodipine, atenolol DM II A1c 5.7 on 12/07/17 Controlled Continue holding metformin On Basal bolus insulin per protocol Lantus am dose hold since pt is NPO for procedure Monitor BS closely ANXIETY Continue buspirone Continue xanax prn Stable GERD continue PPI, sucralfate BPH continue flomax TOBACCO ABUSE Counseling on smoking cessation Denies nicotine patch DVT Prophylaxis SCDs CODE STATUS FULL CODE DISPOSITION Will discharge home today Follow up with urology Dr. Zhou tomorrow at 4pm Total time spent on discharge = 35 MINUTES This includes examination of the patient, discharge planning, medication reconciliation, and communication with other providers. Discharge Instructions Discharge Instructions Date of Service Dec 25, 2017. Admission Reason for Admission: Hydronephrosis,Left Discharge Discharge Diagnosis / Problem: LEFT OBSTRUCTING RENAL CALCULUS , LEFT HYDRONEPHROSIS, UTI Discharge Goals Goal(s): Decrease discomfort, Increase independence, Improve disease control Activity Recommendations Activity Limitations: resume your previous activity ( TOLERATED) . Instructions / Follow-Up Instructions / Follow-Up Already has a Follow up appointment with urology Dr. Zhou on 12/26 (tomorrow) Follow up with your primary care provider Dr. Luis Reeves (Dr. Hill's colleague) on 01/01 at 12:45 PM Complete the course of antibiotic with Keflex Hold narcotic if you develop any lethargy and drowsiness Do not drive or operate any machine after taking the pain medicine (Narcotic) Hold metformin for now until seeing urology Dr. Zhou tomorrow Current Hospital Diet Patient's current hospital diet: Diabetes Type 2 Diet, AHA Diet (Heart Healthy) Discharge Diet Recommended Diet: AHA Diet (Heart Healthy), Diabetes Type 2 Diet Procedures Procedures Performed: Cystoscopy Left Retro Stent placement Pending Studies Studies pending at discharge: yes List of pending studies: Final urine culture Medical Emergencies . Who to Call and When: Medical Emergencies: If at any time you feel your situation is an emergency, please call 911 immediately. . Non-Emergent Contact Non-Emergency issues call your: Primary Care Provider, Urologist Call Non-Emergent contact if: temperature is above 101 . . "Provider Documentation" section prepared by Daysi Hung. . [place] Drug Monitoring Program Search Results: patient reviewed within database
[2017-12-25] MEDS ORDERED: CEPHALEXIN MONOHYDRATE 500 MG CAP PO SCH (21:00)
[2017-12-27] MEDS ORDERED: OXYC-57 PO (09:25)
[2017-12-27] MEDS ORDERED: CEPH500C2 PO (09:25)
[2017-12-27] MEDS ORDERED: ASCA500 PO (09:26)
[2017-12-28] MEDS ORDERED: OXYC-57 PO (11:23)
== END 2017-12-25 16:10 | disposition home or self-care (01) | DRG 694 ==
LOC: C.EDB 11:47 → C.3E 14:02 → ENRESERV 14:34
PROVIDERS: ADMIT Internal Medicine; ATTEND Internal Medicine
PROC: BT1FZZZ Fluoroscopy of Left Kidney, Ureter and Bladder (ICD-10-PCS; principal; 2017-12-23 08:30)
PROC: 0T778DZ Dilation of Left Ureter with Intraluminal Device, Via Natural or Artificial Opening Endoscopic (ICD-10-PCS; principal; 2017-12-23 08:30)
DX: N13.2 Hydronephrosis with renal and ureteral calculous obstruction (principal); N17.9 Acute kidney failure, unspecified; N39.0 Urinary tract infection, site not specified; E11.21 Type 2 diabetes mellitus with diabetic nephropathy; K21.9 Gastro-esophageal reflux disease without esophagitis; N40.0 Benign prostatic hyperplasia without lower urinary tract symptoms; E78.5 Hyperlipidemia, unspecified; Z79.84 Long term (current) use of oral hypoglycemic drugs; Z88.1 Allergy status to other antibiotic agents; I12.9 Hypertensive chronic kidney disease with stage 1 through stage 4 chronic kidney disease, or unspecified chronic kidney disease; F41.9 Anxiety disorder, unspecified; E87.6 Hypokalemia; F17.200 Nicotine dependence, unspecified, uncomplicated; B95.8 Unspecified staphylococcus as the cause of diseases classified elsewhere

== ENCOUNTER → 2017-12-26 | Outpatient (CLI) | payer OTHER ==
[~2017-12-26] MED LIST changes: +ASCA500 PO; +CEPH500C2 PO; +KFL500 PO; +OXYC-57 PO
[2017-12-26 19:24] LABS: BLOOD UREA NITROGEN 19 mg/dl (7-18); CARBON DIOXIDE 29 mmol/L (21-32); CREATININE 1.19 mg/dl (0.60-1.40); POTASSIUM 3.4 mmol/L (3.5-5.1); SODIUM 141 mmol/L (136-145)
== END | disposition home or self-care (01) ==
LOC: C.LAB 17:44
PROVIDERS: ATTEND Urology
DX: Z00.00 Encounter for general adult medical examination without abnormal findings (principal); N20.0 Calculus of kidney

== ENCOUNTER → 2017-12-28 | Outpatient (CLI) | payer OTHER ==
[~2017-12-28] MED LIST changes: -CHOL1CAP63 PO; -KFL500 PO; -SUCR1TAB PO
--- NOTE | 2017-12-28 08:29 | DIAGNOSTIC IMAGING REPORT ---
KUB CLINICAL HISTORY: 57 years-old Male presenting with N20.0 Nephrolithiasis . TECHNIQUE: Single supine view of the abdomen was obtained. COMPARISON: CT from 12/22/2017. FINDINGS: Nonobstructive bowel gas pattern. No gross pneumoperitoneum. A left ureteral stent is in place. Prominent cluster of calculi noted at the lower pole left kidney. No calculi along the course of the left ureteral stent. Calculus also noted at the lower pole the right kidney. Degenerative changes of the spine. IMPRESSION: 1. Bilateral nephrolithiasis with a left ureteral stent in place. No radiographic evidence of ureteral calculi. Electronically signed by: Rickie Beckwith M.D. 12/28/2017 8:27 AM Dictated Date/Time: 12/28/2017 7:40 AM
== END | disposition home or self-care (01) ==
LOC: C.RAD 06:24
PROVIDERS: ATTEND Urology
DX: N20.0 Calculus of kidney (principal)

== ENCOUNTER → 2017-12-28 | Day surgery (SDC) | payer OTHER ==
[2017-12-27 09:26] VITALS: Ht 167.6 cm; Wt 87.7 kg
[~2017-12-28] VITALS: Ht 167.6 cm; Wt 87.7 kg
[~2017-12-28] MED LIST changes: +ATROPINE SULFATE 0.1 MG/ML 5ML SYR IV PRN; +DEXAMETHASONE SOD INJ 4 MG/ML VIAL ONE; +EpHEDrine SULFATE INJ 50 MG/ML AMP IV PRN; +EpHEDrine SULFATE INJ 50 MG/ML AMP ONE; +FENTANYL CITRATE INJ 50 MCG/1 ML 2 ML VIAL IV PRN; +FENTANYL CITRATE INJ 50 MCG/1 ML 2 ML VIAL ONE; +LACTATED RINGER'S 1000ML 1,000 ML IV SCH; +LIDOCAINE HCL 2% 2 ML VIAL (20MG/ML) ONE; +MIDAZOLAM HCL 1 MG/ML 2ML VIAL ONE; +ONDANSETRON INJ 2 MG/ML 2 ML VIAL IV PRN; +ONDANSETRON INJ 2 MG/ML 2 ML VIAL ONE; +OXYCODONE/ACETAMINOPHEN 5-325 TAB PO PRN; +PROPOFOL IV EMULSION 10 MG/ML 20 ML VIAL ONE; +VANCOMYCIN 1GM/270ML NSS IV SCH; +VANCOMYCIN HCL 1000MG/20ML VIAL ONE; +WATER, STERILE FOR INJ 10 ML VIAL ONE
--- NOTE | 2017-12-28 10:03 | History & Physical Bridge Note ---
H&P Re-Evaluation Bridge Note: I have examined the patient, reviewed the History & Physical and in the interval since the performance of the History & Physical I have noted the following changes of clinical significance: No changes noted
--- NOTE | 2017-12-28 11:24 | Discharge Instructions-SurgCtr ---
Discharge Instructions Date of Service Dec 28, 2017. Visit Reason for Visit: STONE Discharge Discharge Diagnosis / Problem: STONE Discharge Goals Goal(s): Therapeutic intervention Medications Stopped Medications Name(s): ASA Last dose approx Dec 21 Activity Recommendations Activity Limitations: per Instructions/Follow-up section Exercise/Sports Limitations: rest today May Resume Sexual Activity: when tolerated Shower/Bathe: no limitations Driving or Machine Use: resume 1 day after discharge MEDICATIONS: Resume previous medications unless instructed otherwise by your surgeon. Resume pre-[facility] medication except for aspirin, coumadin or other blood thinners. __ Toradol 10 mg every 6 hours for initial pain. __ Lortab 5 mg 1-2 every 4 hours for pain. _XX_ Percocet 5 mg 1-2 every 4 hours for pain. __ Macrodantin 50 mg x 3 a day. __ Flomax 1 tab daily one half (1/2) hour after supper. SPECIAL CARE INSTRUCTIONS: 1. Get KUB (x-ray) _X_ day before or day of office visit and bring x-ray to office __ get x-ray 2 days before and tell office you are getting x-rays when you call for the appointment. 2. Strain ALL urine. 3. Please call if you have a fever, chills, severe pain, or constant dribbling of urine. 4. Office phone number . FOLLOW UP VISIT: Please call the office to schedule a follow-up appointment at . Anesthesia . Post Anesthesia Instructions: If you have had General Anesthesia or IV Sedation: * Do not drive today. * Resume driving when surgeon permits. * Do not make important decisions or sign legal documents today. * Call surgeon for: 1. Temperature elevations greater than 101 degrees F. 2. Uncontrollable pain. 3. Excessive bleeding. 4. Persistent nausea and vomiting. 5. Medication intolerance (nausea, vomiting or rash). * For nausea and vomiting use only clear liquids such as: tea, soda, bouillon until nausea subsides, then gradually increase diet as tolerated. * If you have any concerns or questions, call your surgeon's office. If physician is unavailable and it is an emergency, call 911 or go to the nearest emergency room. . Diet Recommendations Home Diet: resume previous diet Procedures Procedures Performed: Left Extracorporeal Shock Wave Lithotripsy - Renal Pending Studies Studies pending at discharge: no Medical Emergencies . Who to Call and When: Medical Emergencies: If at any time you feel your situation is an emergency, please call 911 immediately. . Non-Emergent Contact Non-Emergency issues call your: Urologist Call Non-Emergent contact if: temperature is above 101.5, your pain is not controlled . . "Provider Documentation" section prepared by Anthony Aponte. . [place] Drug Monitoring Program Search Results: patient reviewed within database
--- NOTE | 2017-12-28 11:26 | [facility] Operative Report ---
Operative Report Operative Date Dec 28, 2017. Pre-Operative Diagnosis left renal calculi Post-Operative Diagnosis Same as pre-op Procedure(s) Performed Left Extracorporeal Shock Wave Lithotripsy - Renal Surgeon Dr. Anthony Aponte [place] Raft[employer] Guide Surgeon(s) None Estimated Blood Loss 0 mL Findings LEFT RENAL STONE Specimens None Drains None Anesthesia Type General Complication(s) none Disposition yes Recovery Room / PACU Indications LEFT RENAL STONE Description of Procedure Patient was identified in the preoperative holding area, appropriate informed consent was reviewed and completed and the patient was transported to the operating suite. Upon arrival appropriate preoperative antibiotics were administered and general anesthesia induced. The patient was placed in supine position and the stone was localized under fluoroscopy. A total of [__2500_] shocks were delivered to the stone. There appeared to be good fragmentation of the stone. Details of this procedure can be found on the [place] [facility] Management information sheet. At the conclusion of the case the patient was extubated and taken to the PACU in stable condition. There were no complications. I attest to the content of the Intraoperative Record and any orders documented therein. Any exceptions are noted below.
--- NOTE | 2017-12-28 12:02 | Anesthesia Progress Nt - [facility] ---
Anesthesia Post Op Note Date & Time Dec 28, 2017 at 12:02 Vital Signs Pain Intensity: 0 Vital Signs Past 12 Hours Date Time Temp Pulse Resp B/P (MAP) Pulse Ox O2 Delivery O2 Flow Rate FiO2 12/28/17 11:42 74 16 99 12/28/17 11:42 75 16 12/28/17 11:40 126/84 12/28/17 11:37 73 14 12/28/17 11:37 73 14 99 12/28/17 11:35 117/79 12/28/17 11:32 113/78 12/28/17 11:32 36.4 75 16 113/78 98 Mask 6 12/28/17 07:26 36.5 66 18 117/75 (89) 95 Room Air Notes Mental Status: alert / awake / arousable, participated in evaluation Pt Amnestic to Procedure: Yes Nausea / Vomiting: adequately controlled Pain: adequately controlled Airway Patency, RR, SpO2: stable & adequate BP & HR: stable & adequate Hydration State: stable & adequate Anesthetic Complications: no major complications apparent
[2017-12-28 12:47] VITALS: BP 125/82; PULSE 68; TEMP 36.1; O2SAT 96
== END | disposition home or self-care (01) ==
LOC: X.SURG 06:52
PROVIDERS: ATTEND Urology
DX: N20.0 Calculus of kidney (principal); N40.1 Benign prostatic hyperplasia with lower urinary tract symptoms; N13.8 Other obstructive and reflux uropathy; N52.9 Male erectile dysfunction, unspecified; I10 Essential (primary) hypertension; E78.00 Pure hypercholesterolemia, unspecified; Z88.0 Allergy status to penicillin; Z87.440 Personal history of urinary (tract) infections; Z87.11 Personal history of peptic ulcer disease; Z87.891 Personal history of nicotine dependence

== ENCOUNTER 2018-03-14 05:06 | Inpatient (IN) ==
--- NOTE | 2017-12-26 14:22 | Anesthesiology Consultation ---
Date of Service December 26, 2017 Assessment & Plan (1) Encounter for pre-operative examination: Chart Review Chart Review: Optimized for Surgery Consults Requested none Teaching & Discussion Pre-Anesthesia Teaching/Discussion Notes: Instructed NPO after midnight before surgery,except medications with 15 cc of water. Medication instructions provided according to the PAT guidelines. Additional Notes Data reentry from Liborio avila PA-C,12/10/17. History Surgery Operation Date: 01/16/18 11:30 Proposed Procedures p Left Total Knee Arthroplasty(Left) - Los Henning MD Height/Weight Height: 5 ft 6 in Weight: 87.09 kg Allergies Allergy/AdvReac Type Severity Reaction Status Date / Time amoxicillin AdvReac Mild Diarrhea Verified 12/26/17 07:01 Medications Home Medications Medication Instructions Recorded Confirmed Last Taken atenolol 50 mg PO BID #0 02/24/07 12/26/17 Unknown alprazolam 0.5 mg PO TID PRN #0 tab 12/03/17 12/26/17 Unknown amlodipine 5 mg PO HS #0 tab 12/03/17 12/26/17 Unknown aspirin 81 mg PO QAM #0 12/03/17 12/26/17 Unknown buspirone 15 mg PO BID #0 tab 12/03/17 12/26/17 Unknown fluticasone 2 spry NA DAILY #0 12/03/17 12/26/17 Unknown loratadine 10 mg PO QAM #0 tab 12/03/17 12/26/17 Unknown melatonin 5 mg PO HS #0 12/03/17 12/26/17 Unknown metformin 500 mg PO BID #0 tab 12/03/17 12/26/17 Unknown sodium chloride [Saline Mist] 1 spray INTRANASAL DAILY PRN #0 12/03/17 12/26/17 Unknown sucralfate 1 g PO ACHS #0 tab 12/03/17 12/26/17 Unknown tamsulosin 0.4 mg PO QAM #0 12/03/17 12/26/17 Unknown esomeprazole magnesium [Nexium] 40 mg PO QAM #0 cap 12/22/17 12/26/17 Unknown fenofibric acid (choline) 135 mg PO QAM 12/26/17 12/26/17 Unknown Past Medical History Medical History Anxiety (Chronic) BPH (benign prostatic hyperplasia) (Chronic) Kidney stones (Chronic) HX Anemia GERD (gastroesophageal reflux disease) Hyperlipemia Hypertension Obesity (BMI 30.0-34.9) Osteoarthritis Past Surgical History Surgical History Hx of colonoscopy Hx of esophagogastroduodenoscopy Hx of foot surgery PLANTAR FASCITIS REPAIR Hx of nephrostomy RIGHT KIDNEY TO REMOVE STONE Anesthesia Complications Comment: GA no problems Social History Smoking Status: Former smoker tobacco type: smokeless tobacco Do You Dip or Chew Tobacco: Yes (1 CAN IN 2 DAYS ADVISED) Hx Alcohol Use: Yes Alcohol type: beer alcohol intake frequency: a few times a week Hx Substance Use: No Exercise / Class Metabolic Activity III < 4 Walking/Shop/Light housework Physical Exam ENMT Mouth: + small oral opening; dentition not poor Thyromental Distance: > or= 3.5 Finger Breadths Mallampati Class: III Neck + limited neck extension Respiratory normal respiratory effort, lungs clear to auscultation Cardiovascular RRR, no murmur, no edema Vessels: + carotid bruit Testing Laboratory Results Laboratory Tests 12/22/17 12/22/17 12/24/17 12:18 12:24 09:17 WBC 9.32 Hgb 12.1 L Hct 35.8 L Plt Count 251 Neut # (Auto) 8.10 H [place] # (Auto) 1.38 H Sodium Potassium Chloride Carbon Dioxide BUN Creatinine Random Glucose Calcium Urine Nitrite POS H Ur Leukocyte Esterase MODERATE H 12/24/17 09:17 WBC Hgb Hct Plt Count Neut # (Auto) [place] # (Auto) Sodium 139 Potassium 3.6 Chloride 104 Carbon Dioxide 25 BUN 16 Creatinine 1.28 D Random Glucose 131 H Calcium 9.1 Urine Nitrite Ur Leukocyte Esterase PT-10.2/INR-1.0/PTT-30.5 Electrocardiogram Date: 12/07/17 Findings: + NSR @ (67) Chest X-Ray Date: 12/07/17 Findings: + NAD Echocardiogram Date: 05/10/11 EF: 60 LV Function: normal RMWA: + none Valvular Disease: + no significant valvular disease Stress Test Date: 05/10/11 Type: exercise Findings: + WNL and + achieved max HR (141/min); no EKG changes, no CP and no ischemia Resting EF: 60 [address] LV Function: normal Resting RWMA: + none Valvular Disease: no significant valvular disease
--- NOTE | 2018-03-13 20:20 | History and Physical Report ---
DATE OF ADMISSION: 03/14/2018 CHIEF COMPLAINT: Chronic left knee pain. HISTORY OF PRESENT ILLNESS: This is a 57-year-old male patient of Dr. Henning'brie complaining of chronic left knee pain, longstanding, now progressively getting worse. He has been diagnosed with end-stage osteoarthritis per clinical and radiographic exams. The patient has failed conservative treatment including intraarticular injections, anti-inflammatories, and the use of a brace. The patient has increased pain with weightbearing activities and his pain does interfere with his activities of daily living. PAST MEDICAL HISTORY: Hypertension, anxiety, diabetes mellitus, sciatica, kidney stones, enlarged prostate. SOCIAL HISTORY: Nonsmoker, nondrinker. PAST SURGICAL HISTORY: Kidney stones. REVIEW OF SYSTEMS: Chronic left knee pain, otherwise denies any shortness of breath, chest pain, nausea, vomiting, or any other joint complaints. FAMILY HISTORY: Noncontributory. MEDICATIONS: 1. Melatonin 5 mg daily. 2. Fenofibric acid 135 mg daily. 3. Amlodipine 5 mg daily. 4. Atenolol 50 mg 2 tablets daily. 5. Alprazolam 0.5 mg 3 times as needed daily. 6. Carafate 1 g 4 times daily before meals and bedtime. 7. BuSpar 15 mg twice daily. 8. Metformin 500 mg 2 times daily. 9. Magnesium 40 mg daily. 10. Tamsulosin 0.4 mg daily. 11. Flonase 50 mcg actuation 2 sprays each nostril daily. 12. Claritin 10 mg daily. 13. Saline 0.65% nasal spray each nostril as needed for congestion. ALLERGIES: INCLUDE PENICILLIN. PHYSICAL EXAMINATION: GENERAL: Well-developed, well-nourished 57-year-old male, in no acute distress. He is alert and oriented x3 and pleasant. HEENT: Normocephalic, atraumatic. Extraocular motions are intact. Pupils are equal, reactive to light. HEART: Regular rate and rhythm. No murmurs appreciated. LUNGS: Clear. ABDOMEN: Soft, nontender, bowel sounds present. EXTREMITIES: Left knee reveals 0-120 degrees of range of motion with some mild effusion. He has a varus deformity with medial joint line tenderness. He does actively use a brace. He has 4/5 strength with pain. NEUROLOGIC: Neurovascularly, he is intact in his left lower extremity. DIAGNOSES: Left knee end-stage osteoarthritis, hypertension, anxiety, diabetes mellitus, sciatica, kidney stones, enlarged prostate. PLAN: The patient was advised of his diagnosis. Indications, risks, benefits, postop course have all been reviewed. The patient wished to proceed with a left total knee arthroplasty. Necessary consent forms, preoperative testing, and clearances will be obtained.
[2018-03-14] MEDS ORDERED: ROPIVACAINE 0.5% HCL/PF 150 MG, BUPIVACAINE 0.5% MPF 30 ML, EPINEPHrine 30MG/30ML (OR U... INFIL SCH (06:00)
[2018-03-14] MEDS ORDERED: LR 500ML BOLUS IV SCH (06:00)
[2018-03-14] MEDS ORDERED: dexAMETHasone 4 MG TAB PO SCH (06:00)
[2018-03-14] MEDS ORDERED: ACETAMINOPHEN 500 MG TAB PO SCH (06:00)
[2018-03-14] MEDS ORDERED: VANCOMYCIN HCL 1,250 MG in SODIUM CHLORIDE 0.9% 250 ML IV SCH (06:00)
[2018-03-14] MEDS ORDERED: LR 15ML/HR IV SCH (06:00)
[2018-03-14] MEDS ORDERED: FAMOTIDINE 20 MG TAB PO SCH (06:00)
[2018-03-14] MEDS ORDERED: TRANEXAMIC ACID 1,000 MG **IV Pre-op IV SCH (06:00)
[2018-03-14] MEDS ORDERED: METOCLOPRAMIDE HCL 10 MG TABLET PO SCH (06:00)
[2018-03-14] MEDS ORDERED: GABAPENTIN 300 MG x 2 PO SCH (06:00)
[2018-03-14] MEDS ORDERED: CeleBREX 200 MG CAP PO SCH (06:00)
[2018-03-14] MEDS: LR 500ML BOLUS, THEN 15ML/HR IV SCH ×2 (06:18→16:28)
[2018-03-14] MEDS ORDERED: ROPIVACAINE 0.5% 5 MG/ML 30 ML VIAL ONE (06:28)
[2018-03-14] MEDS ORDERED: BUPIVACAINE 0.5 % 5 MG/1 ML PF 10ML VIAL ONE (06:28)
[2018-03-14] MEDS ORDERED: TRANEXAMIC ACID 1,000 MG **IV Intra-op IV SCH (06:30)
[2018-03-14] MEDS ORDERED: ePHEDrine sulfate 50 MG/ML AMP IV PRN (06:36)
[2018-03-14] MEDS ORDERED: ONDANSETRON INJ 2 MG/ML 2 ML VIAL IV PRN ×2 (06:36→10:24)
[2018-03-14] MEDS ORDERED: ATROPINE SULFATE 0.1 MG/ML 5ML SYR IV PRN (06:36)
[2018-03-14] MEDS ORDERED: PROMETHAZINE HCL 12.5 MG in SODIUM CHLORIDE 0.9% 50 ML IV PRN (06:36)
[2018-03-14] MEDS ORDERED: PHENYLEPHRINE 100MCG/ML 5ML SYR IV PRN (06:36)
[2018-03-14] MEDS ORDERED: fentaNYL citrate 100 MCG/2 ML VIAL IV PRN (06:36)
[2018-03-14] MEDS ORDERED: HYDROmorphone INJ 1 MG/ML SYRINGE IV PRN (06:36)
[2018-03-14] MEDS ORDERED: MIDAZOLAM HCL 1 MG/ML 2ML VIAL ONE (06:48)
[2018-03-14] MEDS ORDERED: KETAMINE HCL INJ 50 MG/ML 10 ML VIAL ONE (06:48)
[2018-03-14] MEDS ORDERED: ORTHO JOINT ANESTHETIC ONE (07:05)
[2018-03-14] MEDS ORDERED: POVIDONE-IODINE OP SOLN 30 ML BTL ONE (07:05)
[2018-03-14] MEDS ORDERED: BACITRACIN INJ 50,000 UNIT VIAL ONE (07:05)
--- NOTE | 2018-03-14 07:12 | History & Physical Bridge Note ---
Date of Service March 14, 2018 History & Physical Bridge Note I have examined the patient, reviewed the History & Physical and in the interval since the performance of the History & Physical I have noted the following changes of clinical significance: no changes noted
[2018-03-14] MEDS ORDERED: ONDANSETRON INJ 2 MG/ML 2 ML VIAL ONE (07:38)
[2018-03-14] MEDS ORDERED: DEXAMETHASONE SOD INJ 4 MG/ML VIAL ONE (07:38)
[2018-03-14] MEDS ORDERED: LIDOCAINE HCL 2% MPF (LOCAL) 5 ML VIAL INFIL ONE (07:38)
[2018-03-14] MEDS ORDERED: GLYCOPYRROLATE 0.2 MG/ML VIAL ONE (07:38)
[2018-03-14] MEDS ORDERED: PROPOFOL IV EMULSION 10 MG/ML 20 ML VIAL IV ONE ×3 (07:38→08:22)
--- NOTE | 2018-03-14 09:14 | Post Operative Brief Note ---
Immediate Post Op Note v1 Date of Surgery March 14, 2018 Pre & Post Diagnosis Operation Date: 01/16/18 11:30 <No data on this case meets the specified criteria> Operation Date: 03/14/18 07:15 Pre-Op Diagnosis: Left Knee Degenerative Joint Disease Post-Op Diagnosis: Left Knee Degenerative Joint Disease Procedure Operation Date: 01/16/18 11:30 <No data on this case meets the specified criteria> Operation Date: 03/14/18 07:15 Actual Procedures p Left Total Knee Arthroplasty(Left) - Los Henning MD Surgeon Los Henning MD Branch Maker Bolivar JARRELL Estimated Blood Loss 5 Findings Consistent with Post-Op Diagnosis Drains Hemovac Drain Anesthesia Type Spinal MAC Complications none Disposition Accompanied Patient To Recovery: No Disposition: Recovery Room Overlapping Procedure I was immediately available: during the entire case.
--- NOTE | 2018-03-14 09:29 | Operative Report ---
Post Operative Report Date of Surgery March 14, 2018 Pre & Post Diagnosis Operation Date: 01/16/18 11:30 <No data on this case meets the specified criteria> Operation Date: 03/14/18 07:15 Pre-Op Diagnosis: Left Knee Degenerative Joint Disease Post-Op Diagnosis: Left Knee Degenerative Joint Disease Procedure Operation Date: 01/16/18 11:30 <No data on this case meets the specified criteria> Operation Date: 03/14/18 07:15 Actual Procedures p Left Total Knee Arthroplasty, lateral release- Los Henning MD Surgeon Los Henning MD Manager Cargo Bolivar JARRELL Estimated Blood Loss 5 Findings See Below Varus knee thia-wz-kilr medial compartment grade 4 medial femoral condyle and anterior medial tibia with patellofemoral DJD and some patellofemoral malalignment Specimens Bone cuts Drains 2 Hemovac Complications none Disposition Accompanied Patient To Recovery: No Disposition: Recovery Room Indications 57-year-old white male progressive pain knee effusion failed conservative management radiographs demonstrate [id number]-il-[id number] medial compartment varus knee some patellofemoral arthritis Description of Procedure The patient was taken to the operating room and anesthetized under spinal MAC regional block. Patient was placed supine on the the operating table. A pneumatic tourniquet was placed about the left upper thigh. The knee exam demonstrated no pseudolaxity varus knee good passive range of motion with flexion up to 130 degrees. The involved leg was elevated exsanguinated with Esmarch bandage and the pneumatic tourniquet was raised to 300 millimeters mercury. A longitudinal incision was made across the anterior knee. Skin flaps were elevated. An incision was made into the medial retinaculum and extended up into the mid third of the quadriceps tendon and extended down to the tibial tubercle. Intra-articular findings demonstrated varus knee anteromedial grade 4 wear on the tibia with global grade 3 wear with grade 4 wear on the medial femoral condyle medial aspect with grade 3 wear throughout medial femoral condyle with tricompartmental degenerative arthritis including patellofemoral joint with tight lateral retinaculum. The knee was exposed by excising cruciate ligaments and menisci. The infrapatellar fat pad was resected. The fat pad over the anterior femur at the upper aspect of the articular surface was resected for placement of the component in that area. A subperiosteal peel lateral release was performed around the patella The [employer] journey 2.0 total knee arthroplasty system was utilized for the procedure. The custom femoral cutting guide was pinned in position. The distal femoral cut was made. The size 5, 5 in 1 cutting block was placed. The anterior posterior and chamfer cuts were made. The knee was extended and a free hand cut technique was performed to the patella. The patella with was measured and the width was reproduced using a 32 symmetrical patella component. 3 drill holes are made for the patella component pegs. The tibia was then subluxed. The custom tibial cutting block was pinned in position and the proximal tibial cut was made with the oscillating saw. The cuff was too thin so we placed on a +2 cutting device and a 2 mm more depth cut. The size 4 tibial trial was externally rotated in line with the tibial tubercle and pinned in position. The punch for the stem was used. The femoral trial was inserted and centered the notch cutting devices were used and the collet was placed. Tibial trials were used for the insert. The size 11 mm trial gave balanced ligaments through full range of motion. Patella tracking was assessed with range of motion. The patella tracked slightly laterally in deep flexion so I went ahead and performed a lateral release leaving the synovium intact and the patella tracked centrally throughout full range of motion. The trials were removed. The Orthomix anesthetic cocktail was injected per protocol. The cut bone surfaces and soft tissue were copiously irrigated with antibiotic solution with bacitracin. The final components were cemented with Simplex cement. The final components were Ly [employer] Nephew journey 2.0 size 5 left femoral component, 4 primary tibial baseplate, high flex 11 mm polyethylene insert, 32 mm symmetrical patella. While the cement cured the Betadine soak was used per protocol. When the cement cured the knee was copiously irrigated with pulsatile lavage antibiotic solution with bacitracin. 2 drains were brought out laterally connected to Hemovac. The quadriceps tendon and medial retinaculum were closed with interrupted [id number] #1 Vicryl sutures. The knee was taken through full range of motion and repair was secure. The subcutaneous tissues were closed with 2-0 Vicryl sutures. The skin was closed with dionna. A sterile Silverlon dressing was applied. The tourniquet was let down and the patient had good capillary refill to the extremity. The patient tolerated the procedure well. My physician ssn/ssbn assistant navigator Bolivar JARRELL assisted in the procedure including prepping draping leg positioning soft tissue retraction instrument management and assisted in the closure ,dressings application and will participate in postoperative care the patient. I attest to the content of the Intraoperative Record and any orders documented therein. Any exceptions are noted below.
[2018-03-14] MEDS ORDERED: PHARMACY GLYCEMIC MGMT CONSULT PRN (09:36)
--- NOTE | 2018-03-14 09:53 | Anesthesiology Progress Note ---
Date of Service March 14, 2018 Anesthesia Post Procedure Vital Signs Vital Signs: Temp Pulse Pulse Resp BP Pulse Ox 03/14/18 09:45 76 16 117/75 97 03/14/18 09:35 80 16 103/72 99 03/14/18 09:25 79 16 113/74 97 03/14/18 09:18 37 C 82 16 100/75 97 03/14/18 05:41 36.4 C L 73 20 119/94 97 Pain Intensity Left Knee: Pain Intensity: 0 Notes Mental Status: alert / awake / arousable Patient Amnestic to Procedure: Yes Nausea / Vomiting: adequately controlled Pain: adequately controlled Airway Patency, RR, SpO2: stable & adequate BP & HR: stable & adequate Neuraxial Anesthesia: was administered and sensory block is resolving Anesthetic Complications: no major complications apparent
--- NOTE | 2018-03-14 09:58 | XRay Report ---
LEFT KNEE 2 VIEWS History: Left total knee arthroplasty. Degenerative arthritis. Postop. FINDINGS: The patient is status post a left total knee arthroplasty. The hardware is intact. No fract ure or dislocation. Skin dionna and surgical drains are in place. IMPRESSION: Left total knee arthroplasty. No evidence for hardware complication. Electronically signed by: Carlitos Chun M.D. 03/14/2018 9:57 AM
[2018-03-14] MEDS ORDERED: BISACODYL 10 MG SUPP PR PRN (10:24)
[2018-03-14] MEDS ORDERED: METOCLOPRAMIDE HCL INJ 5 MG/ML 2 ML VIAL IV PRN (10:24)
[2018-03-14] MEDS ORDERED: MoRPHine SULFATE 2 MG/ML CARP IV PRN (10:24)
[2018-03-14] MEDS ORDERED: ZOLPIDEM TARTRATE 5 MG TAB PO PRN (10:24)
[2018-03-14] MEDS ORDERED: VANCOMYCIN CONSULT ACTIVE PRN (10:24)
[2018-03-14] MEDS ORDERED: SOD PHOSPHATE/SOD BIPHOSPHATE ENEMA 132 ML BTL PR PRN (10:24)
[2018-03-14] MEDS ORDERED: ALPRAZolam 0.5 MG TABLET PO PRN (10:24)
[2018-03-14] MEDS ORDERED: SODIUM CHLORIDE 0.65% NA SOLN 45 ML (OCEAN) PRN (10:24)
[2018-03-14] MEDS ORDERED: MAGNESIUM HYDROXIDE SUSP 30 ML UDC PO PRN (10:24)
[2018-03-14] MEDS ORDERED: GLUCOSE 10 TABS/TUBE PO PRN (10:42)
[2018-03-14] MEDS ORDERED: CARBOHYDRATES FOR HYPOGLYCEMIA PO PRN (10:42)
[2018-03-14] MEDS ORDERED: GLUCOSE 40% GEL 15 GM TUBE PO PRN (10:42)
[2018-03-14] MEDS ORDERED: GLUCAGON FOR INJ 1 MG VIAL IM PRN (10:42)
[2018-03-14] MEDS ORDERED: DEXTROSE 50% 50 ML SYRINGE IV PRN (10:42)
--- NOTE | 2018-03-14 11:41 | Pharmacy Report ---
Glycemic Control Consultation - Date of Service March 14, 2018 - Scope Scope: Glycemic Pharmacist consulted by Bolivar Gómez on 03-14-18 for glycemic control and to write orders per [facility] inpatient glycemic control protocol - Objective Weight: 87.09 kg Laboratory Data (last 24hrs): Laboratory Results - last 24 hr 03/14/18 03/14/18 05:23 11:09 POC Glucose 132 H Blood Type A Positive Antibody Screen NEGATIVE HbA1c: - Recent Pertinent Medications Outpatient Anti-diabetic Regimen: * metformin 500 mg bid * A1c = no recent A1C per records, ordered for 03/15 am Risk Factors for Insulin Resistance: * Steroids: received 8 mg dexamethasone preop, ortho, 4 mg iv dexamethasone pulled, uknown if given * Recent Surgery: L TKA * Diet: t2D - Assessment & Plan Assessment & Plan: ASSESSMENT: * 57 year old male, type 2 diabetic managed on metformin at home. No recent A1C' s per hospital records, will order for tomorrow am. PMH significant for htn, anxiety, kidney stones. Postop L TKA - today * Received steroids preop, anticipate steroid induced hyperglycemia - will utilize basal/bolus dosing insulin for management postop PLAN FOR INPATIENT GLYCEMIC CONTROL: * Pt is maintained on oral antidiabetic agents as an outpatient * Oral agents are not recommended for inpatient use d/t drug interactions, changing PO intake, and difficulty titrating for acute hyper/hypoglycemia. ADA recommends re-initiating outpatient oral agents 1-2 days prior to discharge if/ when appropriate if they were held on admission. * Will hold oral agents for admission and utilize SQ basal bolus insulin regimen which is the recommended regimen for inpatient glycemic control. * Will initiate weight based insulin dosing for insulin laura patient and titrate based on BSG trends. * Basal insulin * Lantus 18 units x 1 this am * Bolus insulin - added additional overnight check * NovoLog per scale ACHS or Q6hrs while NPO * Goal Range: Low 110 mg/dL - High 140 mg/dL * Correction Factor: 20 mg/dL/unit * Nutritional / Prandial insulin per carb ratio of 1 unit per 6 grams CHO consumed * Please note that the plan above was derived based on current level of insulin resistance and hospital stress. These recommendations are appropriate for inpatient admission only. Plan of care upon discharge will need to be reassessed to avoid potential outpatient hypo/hyperglycemia. Thank you.
[2018-03-14] MEDS ORDERED: LANTUS PER UNIT CHARGE SQ ONE (11:45)
--- NOTE | 2018-03-14 11:48 | Consultation ---
Date of Consultation March 14, 2018 Assessment & Plan (1) Status post total knee replacement, left: POD #0 s/p L TKA by Dr. Milady ROSAS 5 ml Patient tolerated procedure well -pain/wound management per ortho -VTE prophylaxis/bowel management per ortho -Activity/therapies as directed by ortho -incentive spirometry (2) Osteoarthritis of left knee: -plan as above (3) T2DM (type 2 diabetes mellitus): -Hold metformin -Last A1C 5.7 12/07/17 -Glycemic pharmacist on board -A1C in a.m. (4) Anemia: -normocytic/normochromic -CBC in a.m. to monitor for ABL anemia (5) HTN (hypertension): -bp controlled continue amlodipine and atenolol (6) HLD (hyperlipidemia): -continue fenofibrate (7) History of kidney stones: -hx of recurrent kidney stones, follows Urology Dr. 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 Hill, follow up upon discharge Starting 03/15/18 patient will be followed by Dr. Hung Thank you for this consultation. We will follow the patient with you during their hospital stay. You can reach a member of the [facility] Hospitalist Team 27/11 via pager @ . Supervising Physician Co-Signing Physician Notes Agree with above consult note. Briefly 57M with is s/p Left TKA. Tolerated procedure ok. Post procedure had an epsiode of urinary incontinence but micturating fine now.No chest pain or sob. No nausea.NO blurry vision. 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 Henning Attending Physician: Los Henning MD History of Present Illness This is a 57-year-old male with significant PMH of HTN, HLD, T2 DM, BPH, history of kidney stones, GERD, reflux esophagitis, anxiety, allergic rhinitis, anemia who presents to [facility] for elective left total knee replacement by Dr. Henning. Patient has end stage OADJD of L knee and failed outpatient conservative measures. Currently denies pain, "I can't feel a thing, I can't even tell if I have to pee, but I'm pretty sure I peed all over myself." Complains of feeling a lower abdominal pressure like he could urinate. Denies f/c/s, chest pain, sob, dizziness, n/v/d, abdominal pain. is at bedside. "Just so you know I chew tobacco and I will be doing it in here. "Verdana 4d Allergies Allergy/AdvReac Type Severity Reaction Status Date / Time amoxicillin AdvReac Mild Diarrhea Verified 03/14/18 06:00 Home Medications Home Medications Medication Instructions Recorded Confirmed Type atenolol 50 mg PO BID #0 02/24/07 03/14/18 History alprazolam 0.5 mg PO TID #0 tab 12/03/17 03/14/18 History amlodipine 5 mg PO HS #0 tab 12/03/17 03/14/18 History aspirin 81 mg PO QAM #0 12/03/17 03/14/18 History buspirone 15 mg PO BID #0 tab 12/03/17 03/14/18 History fluticasone 2 spry NA DAILY #0 12/03/17 03/14/18 History loratadine 10 mg PO QAM #0 tab 12/03/17 03/14/18 History melatonin 5 mg PO HS #0 12/03/17 03/14/18 History metformin 500 mg PO BIDM #0 tab 12/03/17 03/14/18 History sodium chloride [Saline Mist] 1 spray INTRANASAL DAILY PRN #0 12/03/17 03/14/18 History tamsulosin 0.4 mg PO QAM #0 12/03/17 03/14/18 History esomeprazole magnesium [Nexium] 40 mg PO QAM #0 cap 12/22/17 03/14/18 History fenofibric acid (choline) 135 mg PO QAM 12/26/17 03/14/18 History sucralfate [Carafate] 1 g PO ACHS 03/14/18 03/14/18 History Patient History Medical History Osteoarthritis (Chronic) Reflux esophagitis (Chronic) History of kidney stones (Chronic) T2DM (type 2 diabetes mellitus) (Chronic) HTN (hypertension) (Chronic) HLD (hyperlipidemia) (Chronic) Anxiety (Chronic) Allergic rhinitis (Chronic) GERD (gastroesophageal reflux disease) (Chronic) BPH (benign prostatic hyperplasia) (Chronic) Obesity (BMI 30.0-34.9) (Chronic) GERD (gastroesophageal reflux disease) (Resolved) Hyperlipemia (Resolved) Hypertension (Resolved) Surgical History Hx of colonoscopy (Chronic) Hx of esophagogastroduodenoscopy (Chronic) Hx of foot surgery (Chronic) PLANTAR FASCITIS REPAIR - L History of lithotripsy (Chronic) History of extraction of renal calculus (Chronic) Status post total knee replacement, left (Chronic) Hx of nephrostomy (Resolved) RIGHT KIDNEY TO REMOVE STONE Family History Mother Cancer Thyroid disease Father Black lung disease Social History Current Living Situation: Spouse and Other Current Living Situation Comment: [facility] Other Information That Helps Us Care for You: No Feels Safe at Home: Yes Smoking Status: Never smoker Do You Dip or Chew Tobacco: Yes (LESS THAN CAN A DAY) Hx Alcohol Use: Yes Alcohol type: beer Alcohol Intake Frequency: other Hx Substance Use: No Beliefs That Will Affect Care: None Preferred Language: Turkmen Communication Ability: Effective Supervisor Transcribing Operators Required: Yes Review of Systems As noted per HPI, 10 systems reviewed and negative unless noted above. Physical Exam 2 Vital Signs (Past 24 Hours): Last Vital Signs Temp 37 C 03/14/18 09:18 Pulse 75 03/14/18 11:14 Resp 16 03/14/18 11:14 BP 125/83 03/14/18 11:14 Pulse Ox 95 03/14/18 11:14 Physical Exam: Gen: WD/WN, M, NAD, sitting up in bed, flat affect, minimal eye contact, unpleasant, conversing easily Head: Normocephalic, Atraumatic Eyes: Sclera normal, no conjunctival injection, PERRLA, EOMI ENT: Gross hearing intact, normal pharynx, mucous membranes moist Neck: supple, no adenopathy, No JVD, no bruit, no thyromegaly, Resp: Clear to auscultation b/l, no wheeze, rales, rhonchi anteriorly. Patient would not cooperate with exam to listen posteriorly. Normal insp/exp effort, no accessory muscle use CV: Regular rate, regular rhythm, no murmur, rub, gallop, or ectopy Abd: +BS x 4, soft, nontender, nondistended Musculoskeletal: moves extremities active rom x 2, upper extremity, strength intact, good category manager strength. No ROM to b/l LE in setting of spinal anesthesia. Extremities: No edema bilaterally, + Teds/SCDS in place, b/l pedal pulse +2 and equal Skin: warm, moist, no rash, negative turgor, cap refill < 2sec Neuro: Alert and oriented x 3, speech normal, flat mood/affect, cran nerve 2-12 intact grossly : deferred
[2018-03-14] MEDS: SODIUM CHLORIDE 0.9% 1000ML 1,000 ML IV SCH ×2 (11:53→21:02)
[2018-03-14] MEDS: INSULIN ASPART 100 UNITS/ML 3 ML PEN SC SCH ×4 (12:22→21:05)
[2018-03-14] MEDS: ACETAMINOPHEN 500 MG TAB PO SCH ×2 (13:48→21:00)
[2018-03-14] MEDS ORDERED: ALPRAZolam 0.5 MG TABLET PO STA (15:07)
[2018-03-14] MEDS: SUCRALFATE 1 GM TAB PO SCH ×2 (16:25→20:59)
[2018-03-14] MEDS: VANCOMYCIN HCL 1,250 MG in SODIUM CHLORIDE 0.9% 250 ML IV SCH (18:28)
[2018-03-14] MEDS: BusPIRone 15 MG TAB PO SCH (20:59)
[2018-03-14] MEDS: CeleBREX 200 MG CAP PO SCH (20:59)
[2018-03-14] MEDS: DOCUSATE SODIUM 100 MG CAP PO SCH (20:59)
[2018-03-14] MEDS: ATENOLOL 50 MG TABLET PO SCH (20:59)
[2018-03-14] MEDS: TRAMADOL HCL 50 MG TABLET PO PRN (21:00)
[2018-03-14] MEDS: AMLODIPINE BESYLATE 5 MG TAB PO SCH (21:00)
[2018-03-14] MEDS: ASPIRIN 81 MG ECTAB PO SCH (21:00)
[2018-03-14] MEDS ORDERED: NON-FORMULARY MEDICATION (Melatonin [Melatonin] 5 MG) PO SCH (21:00)
[2018-03-14] MEDS: ALPRAZolam 0.5 MG TABLET PO SCH (23:16)
[2018-03-15] MEDS ORDERED: INSULIN ASPART 100 UNITS/ML 3 ML PEN SC SCH
[2018-03-15] MEDS: TRAMADOL HCL 50 MG TABLET PO PRN (03:15)
[2018-03-15] MEDS: VANCOMYCIN HCL 1,250 MG in SODIUM CHLORIDE 0.9% 250 ML IV SCH (05:54)
[2018-03-15] MEDS: ACETAMINOPHEN 500 MG TAB PO SCH ×3 (06:27→21:38)
[2018-03-15 06:35] LABS: Hematocrit (blood only) 35.3 % (42-52); Mean Corpuscular Volume 86.5 fL (80-100); Platelet Count 243 K/uL (130-400); RDW Coefficient of Variation 13.7 % (11.5-14.5); RDW Standard Deviation 43.3 fL (36.4-46.3); Red Blood Count 4.08 M/uL (4.7-6.1); White Blood Count 15.29 K/uL (4.8-10.8)
[2018-03-15] MEDS: SODIUM CHLORIDE 0.9% 1000ML 1,000 ML IV SCH (06:36)
[2018-03-15 07:11] LABS: BUN Creatinine Ratio 15.5 (10-20); Calcium 8.4 mg/dl (8.5-10.1); Est GFR (African American) 74.3; Est GFR (Non-African American) 64.1; Potassium 4.2 mmol/L (3.5-5.1)
--- NOTE | 2018-03-15 08:13 | Anesthesiology Progress Note ---
Date of Service March 15, 2018 Anesthesia Post Procedure Vital Signs Vital Signs: Temp Pulse Pulse Resp BP Pulse Ox 03/15/18 08:03 36.4 C L 74 17 121/79 98 03/15/18 03:33 36.7 C 80 16 104/70 96 03/14/18 23:06 36.5 C 80 16 112/70 98 03/14/18 19:39 36.4 C L 87 16 117/76 96 03/14/18 16:11 36.3 C L 83 18 115/75 97 03/14/18 12:54 80 16 121/78 96 03/14/18 12:15 73 16 108/72 97 03/14/18 11:14 75 16 125/83 95 03/14/18 10:45 73 16 122/83 95 03/14/18 09:45 76 16 117/75 97 03/14/18 09:35 80 16 103/72 99 03/14/18 09:25 79 16 113/74 97 03/14/18 09:18 37 C 82 16 100/75 97 Pain Intensity Left Knee: Pain Intensity: 0 Notes Mental Status: alert / awake / arousable and participated in evaluation Patient Amnestic to Procedure: Yes Nausea / Vomiting: adequately controlled Pain: adequately controlled Airway Patency, RR, SpO2: stable & adequate BP & HR: stable & adequate Hydration State: stable & adequate Neuraxial Anesthesia: was administered and sensory block resolved Anesthetic Complications: no major complications apparent and Pt Satisfied with anesthetic care
[2018-03-15 08:15] LABS: Estimated Average Glucose 117 mg/dl
[2018-03-15] MEDS: TAMSULOSIN HCL 0.4 MG CAP PO SCH (08:48)
[2018-03-15] MEDS: SUCRALFATE 1 GM TAB PO SCH ×4 (08:49→21:39)
[2018-03-15] MEDS: MULTIVITAMIN TAB PO SCH (08:49)
[2018-03-15] MEDS: CeleBREX 200 MG CAP PO SCH ×2 (08:49→21:39)
[2018-03-15] MEDS: DOCUSATE SODIUM 100 MG CAP PO SCH ×2 (08:50→21:39)
[2018-03-15] MEDS: ASPIRIN 81 MG ECTAB PO SCH ×2 (08:50→21:39)
[2018-03-15] MEDS: BusPIRone 15 MG TAB PO SCH ×2 (08:50→21:38)
[2018-03-15] MEDS: LORATADINE 10 MG TAB PO SCH (08:51)
[2018-03-15] MEDS: FLUTICASONE PROPIONATE NA SPR 16 GM BTL SCH (08:51)
[2018-03-15] MEDS: PANTOprazole 40 MG TAB PO SCH (08:51)
[2018-03-15] MEDS: ATENOLOL 50 MG TABLET PO SCH ×2 (08:52→21:39)
[2018-03-15] MEDS: ALPRAZolam 0.5 MG TABLET PO SCH ×3 (08:54→23:07)
[2018-03-15] MEDS: INSULIN ASPART 100 UNITS/ML 3 ML PEN SC SCH ×4 (08:56→21:43)
--- NOTE | 2018-03-15 08:58 | Orthopedic Progress Note ---
Date of Service March 15, 2018 Assessment & Plan (1) Osteoarthritis of left knee: POD #1, LEFT TKA DVT PROPH- ASA D/C PLANNING- HOME W OPPT PER MEDICINE. Subjective POD #1, LEFT TKA, DOING WELL, DENIES SOB, CP, N/V+, PAIN CONTROLLED WELL. Physical Exam 2 Vital Signs (Past 24 Hours): Last Vital Signs Temp 36.4 C L 03/15/18 08:03 Pulse 74 03/15/18 08:03 Resp 17 03/15/18 08:03 BP 121/79 03/15/18 08:03 Pulse Ox 98 03/15/18 08:03 Physical Exam: LEFT KNEE DRESSINGS C/D/I, NO DRAINAGE, DRAIN IN TACT, TOES AND ANKLE MOBILE, NO CALF TENDERNESS, A&OX3.
--- NOTE | 2018-03-15 10:22 | Pharmacy Report ---
Glycemic Control Progress Note - Date of Service March 15, 2018 - Scope Glycemic Pharmacist consulted for glycemic control to write orders per [facility] inpatient glycemic control protocol. - Objective Accuchecks BSG(last 24 hours):: 03/14/18 03/14/18 03/14/18 11:09 17:01 20:51 Glucose POC Glucose 132 H 205 H 169 H 03/14/18 03/15/18 03/15/18 23:50 06:12 08:07 Glucose 112 H POC Glucose 263 H 129 H HbA1c:: Hemoglobin A1c 5.7 % (4.5-5.6) H 03/15/18 06:12 - Recent Pertinent Medications The patient is currently receiving: * Basal insulin: Lantus 18 units x 1 * Correctional Insulin: Novolog Correction per scale ACHS Goal Range: [id number] mg/dL - High 140 mg/dL Correction Factor: 20 mg/dL/unit * Prandial insulin: Per carb ratio of 1 unit per 6 grams CHO consumed - Outpatient Anti-Diabetic Meds metformin 500 mg PO BID - Assessment & Plan ASSESSMENT: * See progress note from 03/14/18 for more background info, in short: * Pt receiving SQ basal bolus insulin regimen for hyperglycemia secondary to baseline DM (outpatient regimen on hold), recent surgery (POD 1 for knee sx), and s/p dexamethasone 8 mg PO x 1 preop. * Patient is currently receiving an average of 45 units of insulin per day * 18 units of basal insulin * 27 units of prandial/correctional insulin * BSGs ranging 132 - 263 mg/dl over the past 24hrs * Changes needed to insulin regimen: * AM Fasting BSG = 112 mg/dl. This is within goal range for patient based on inpatient targets and co-morbidities. Basal insulin will not be continued for now as patient received only one dose of steroids prior to surgery. * Post-prandial BSGs were elevated yesterday but trended downwards nicely. Loosen CF/CR slightly as effects of dexamethasone will begin to decrease * Total daily dose = ~20 units. Will continue loosen CF/CR and no basal as patient's HbA1C is well controlled. PLAN FOR INPATIENT GLYCEMIC CONTROL: * D/C basal coverage * Changing correction factor to 25 mg/dl/unit * Changing carb ratio to 1 unit per 7 grams CHO consumed * Continuing goal range of Low 110 mg/dL - High 140 mg/dL RECOMMENDATIONS FOR DISCHARGE: * Patient's HbA1C is well controlled so may continue metformin as an outpatient. * Please note that the plan above was derived based on current level of insulin resistance and hospital stress. These recommendations are appropriate for inpatient admission only. Plan of care upon discharge will need to be reassessed to avoid potential outpatient hypo/hyperglycemia. Thank you.
--- NOTE | 2018-03-15 12:33 | Hospitalist Progress Note ---
Date of Service March 15, 2018 Assessment & Plan (1) Status post total knee replacement, left: POD #1 s/p L TKA by Dr. Milady ROSAS 5 ml Patient tolerated procedure well -pain/wound management per ortho -VTE prophylaxis/bowel management per ortho -Activity/therapies as directed by ortho -incentive spirometry (2) Osteoarthritis of left knee: -plan as above (3) Leukocytosis: -wbc 15.29 this a.m. -likely in the setting of periop steroids vs surgery -no s/sx of infection, he is afebrile -monitor (4) T2DM (type 2 diabetes mellitus): -Hold metformin -A1C 5.7 today -Glycemic pharmacist on board (5) Anemia: -normocytic/normochromic -H/H 12.0 and 35.3 today (6) HTN (hypertension): -bp controlled continue amlodipine and atenolol (7) HLD (hyperlipidemia): -continue fenofibrate (8) History of kidney stones: -hx of recurrent kidney stones, follows Urology Dr. 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 Hill, follow up upon discharge Starting today patient will be followed by Dr. Hung Thank you for this consultation. We will follow the patient with you during their hospital stay. You can reach a member of the [facility] Hospitalist Team 27/11 via pager @ . Supervising Physician Co-Signing Physician Notes Pt was seen and examined. Agreed with Laverne ARROYO assessment and plan. Pt denies any complaints. S/P LTKA day 1 with no post op complication. Continue PT/ OT. Pain control as per ortho. Continue Monitor BP and BS. MD Anabell Subjective Patient was seen and examined in bedside in room 321. He is POD #1 left TKA. Overall feels well today. Has minimal left knee discomfort. Was up and ambulating with therapy this morning. Denies fever, chills, sweats, chest pain , shortness of breath, nausea, vomiting, diarrhea. He is able to urinate without difficulty. Passing flatulence. Probable discharge home with services tomorrow. Physical Exam 2 Vital Signs (Past 24 Hours): Last Vital Signs Temp 36.4 C L 03/15/18 08:03 Pulse 74 03/15/18 08:03 Resp 17 03/15/18 08:03 BP 121/79 03/15/18 08:03 Pulse Ox 98 03/15/18 08:03 Physical Exam: Gen: WD/WN, M, NAD, A&O x3 HEENT: Normocephalic, atraumatic, conjunctivae moist, sclerae anicteric, mucous membranes moist. Lung: Clear to Auscultation bilaterally, no wheezes/rales/rhonchi Heart: Regular rate, regular rhythm, no murmurs, rubs, or gallops Abdomen: Soft, NT, ND +BS x 4 Extremities: Trace LLE Edema, hemovac in place, CDI, Teds b/l, no RLE edema. Pedal pulses +1 and equal Skin: Warm, no rash, negative turgor. Results & Data Laboratory Results Short CBC 03/15/18 Range/Units 06:12 WBC 15.29 H (4.8-10.8) K/uL Hgb 12.0 L (14.0-18.0) g/dL Hct 35.3 L (42-52) % Plt Count 243 (130-400) K/uL BMP 03/15/18 06:12 Sodium 138 Potassium 4.2 Chloride 107 Carbon Dioxide 25 BUN 19 H Creatinine 1.24 Glucose 112 H Calcium 8.4 L
[2018-03-15] MEDS: OXYCODONE HCL IR 5 MG TAB (IMMEDIATE RELEASE) PO PRN ×3 (13:35→23:10)
[2018-03-15] MEDS: METFORMIN HCL 500 MG TAB PO SCH (17:40)
[2018-03-15] MEDS ORDERED: MELATONIN 5 MG PO PRN (21:04)
[2018-03-15] MEDS ORDERED: NON-FORMULARY MEDICATION SCH (21:05)
[2018-03-15] MEDS: AMLODIPINE BESYLATE 5 MG TAB PO SCH (21:39)
[2018-03-16] MEDS: TRAMADOL HCL 50 MG TABLET PO PRN (02:02)
[2018-03-16] MEDS: ACETAMINOPHEN 500 MG TAB PO SCH (06:32)
[2018-03-16 06:38] LABS: Hematocrit (blood only) 36.3 % (42-52); Hemoglobin 12.2 g/dL (14.0-18.0); Mean Corpuscular Hgb Conc 33.6 g/dL (32-36); Mean Corpuscular Volume 87.3 fL (80-100); Mean Platelet Volume 9.4 fL (7.4-10.4); Platelet Count 291 K/uL (130-400); RDW Standard Deviation 44.3 fL (36.4-46.3); Red Blood Count 4.16 M/uL (4.7-6.1); White Blood Count 14.35 K/uL (4.8-10.8)
--- NOTE | 2018-03-16 06:44 | Orthopedic Progress Note ---
Date of Service March 16, 2018 Assessment & Plan (1) Osteoarthritis of left knee: POD #2, LEFT TKA DVT PROPH- ASA D/C PLANNING- HOME W OPPT PER MEDICINE. Subjective POD #2, LEFT TKA, DOING WELL, DENIES SOB, CP, N/V+, PAIN CONTROLLED WELL. Physical Exam 2 Vital Signs (Past 24 Hours): Last Vital Signs Temp 36.2 C L 03/15/18 23:11 Pulse 67 03/15/18 23:11 Resp 16 03/15/18 23:11 BP 129/83 03/15/18 23:11 Pulse Ox 98 03/15/18 23:11 Musculoskeletal: NVDI, calf SNT, negative vilma sign. DP palpable, able to wiggle toes/ankle movement without difficulty. silverlon dressing clean dry and intact. expected post-operative bruising noted.
[2018-03-16 07:04] LABS: BUN Creatinine Ratio 16.3 (10-20); Calcium 8.7 mg/dl (8.5-10.1); Creatinine Clr Calc Pharmacy 57.3 ml/min; Est GFR (African American) 60.5; Est GFR (Non-African American) 52.2; Potassium 3.8 mmol/L (3.5-5.1)
[2018-03-16] MEDS: INSULIN ASPART 100 UNITS/ML 3 ML PEN SC SCH (07:20)
[2018-03-16] MEDS: SUCRALFATE 1 GM TAB PO SCH (07:23)
[2018-03-16] MEDS: METFORMIN HCL 500 MG TAB PO SCH (07:50)
[2018-03-16] MEDS: LORATADINE 10 MG TAB PO SCH (09:44)
[2018-03-16] MEDS: FLUTICASONE PROPIONATE NA SPR 16 GM BTL SCH (09:44)
[2018-03-16] MEDS: PANTOprazole 40 MG TAB PO SCH (09:44)
[2018-03-16] MEDS: MULTIVITAMIN TAB PO SCH (09:44)
[2018-03-16] MEDS: DOCUSATE SODIUM 100 MG CAP PO SCH (09:44)
[2018-03-16] MEDS: BusPIRone 15 MG TAB PO SCH (09:45)
[2018-03-16] MEDS: CeleBREX 200 MG CAP PO SCH (09:45)
[2018-03-16] MEDS: ATENOLOL 50 MG TABLET PO SCH (09:46)
[2018-03-16] MEDS: ASPIRIN 81 MG ECTAB PO SCH (09:47)
[2018-03-16] MEDS: TAMSULOSIN HCL 0.4 MG CAP PO SCH (09:47)
[2018-03-16] MEDS: ALPRAZolam 0.5 MG TABLET PO SCH (09:50)
[2018-03-16] MEDS: OXYCODONE HCL IR 5 MG TAB (IMMEDIATE RELEASE) PO PRN (12:23)
--- NOTE | 2018-03-27 13:31 | Discharge Summary ---
HISTORY OF PRESENT ILLNESS: This is a 57-year-old male patient of Dr. Henning's complaining of chronic left knee pain, longstanding, progressively getting worse. The patient failed conservative treatment and elected to proceed with a left total knee arthroplasty. PAST MEDICAL HISTORY: Hypertension, anxiety, diabetes mellitus, sciatica, kidney stones and BPH. PHYSICAL EXAMINATION: On discharge, the left knee Silverlon dressing was clean, dry and intact. There was no redness or drainage. He had no calf tenderness. Negative Homans sign. Neurologically and neurovascularly, he is intact in his left lower extremity. DIAGNOSIS: Status post left total knee arthroplasty with a history of hypertension, anxiety, diabetes mellitus, sciatica, kidney stones and enlarged prostate. PLAN: The patient was discharged home with outpatient physical therapy. He will continue his preadmission medications with the addition of pain medications and aspirin twice daily for DVT prophylaxis. The patient will follow up with Dr. Henning as scheduled as an outpatient.
== END 2018-03-16 13:22 | disposition home or self-care (01) | DRG 470 ==
LOC: ASU 05:06 → 3E 09:31